=== PATIENT | male | born 1970 | race Caucasian/White ===

== ENCOUNTER → 2020-05-30 09:30 | Outpatient (CLI) | payer OTHER, SELFPAY ==
--- NOTE | ~2020-05-30 | XR_ITS ---
XR chest 2V 05/30/2020 09:46 Indication: Wheezing, dry cough. Nonsmoker Procedure: 2 view chest Comparison: Comparison to multiple prior studies sequentially, with oldest reviewed study dated 02/21. Findings: Heart size normal. No focal air space disease, pulmonary edema, pleural effusion or suspect ed pneumothorax. Calcified granuloma right mid thorax. Impression: 1: No acute cardiopulmonary disease. Reviewed, dictated and finalized at location A. 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
== END ==
PROVIDERS: PCP Family Medicine; Visit Provider Nurse Practitioner Family
DX: R06.2 Wheezing (principal)
CPT/HCPCS: 71046

== ENCOUNTER → 2020-07-23 12:15 | Outpatient (CLI) | payer OTHER, SELFPAY ==
[2020-07-23 23:32] LABS: SARS-CoV-2 RNA PCR Negative
== END ==
PROVIDERS: PCP Family Medicine; Visit Provider Physician Assistant Medical
DX: Z20.822 Contact with and (suspected) exposure to COVID-19 (principal); R68.89 Other general symptoms and signs
CPT/HCPCS: C9803; U0003; U0005

== ENCOUNTER → 2021-04-09 02:33 | Outpatient (CLI) | payer OTHER, SELFPAY ==
[2021-04-09 18:47] LABS: SARS-CoV-2 RNA PCR Negative
== END ==
PROVIDERS: PCP Family Medicine; Visit Provider Physician Assistant Medical
DX: R09.89 Other specified symptoms and signs involving the circulatory and respiratory systems (principal); Z20.822 Contact with and (suspected) exposure to COVID-19
CPT/HCPCS: C9803; U0003; U0005

== ENCOUNTER 2021-10-15 15:06 | Outpatient (CLI) | payer BC, SELFPAY ==
--- NOTE | 2021-10-22 15:27 | WPDHOLTEREM ---
Holter/Event Monitor Holter/Event Monitor Date of procedure: 10/15/21 Holter/Event Procedure: 48 Hr Holter Monitor Indications: Cardiac murmur Conclusion: 1. 48 hour holter monitor on 10/15/21. 2. Predominant rhythm is sinus rhythm. HR range 45-117 bpm; average HR 66 bpm. 3. There are 3,926 premature supraventricular complexes and 8 supraventricular couplets, 30 supraventricular bigeminy and 12 supraventricular trigeminy. There are 4 episodes of atrial tachycardia, fastest at 176 bpm and longest lasting 15 beats. 4. No premature ventricular complex. No ventricular tachycardia. 5. No sinoatrial or atrioventricular blocks. No significant pauses greater than 2 seconds. 6. No symptoms available for correlation.
== END 2021-10-15 15:07 | disposition home or self-care (01) ==
PROVIDERS: PCP Family Medicine; Visit Provider Nurse Practitioner Family
DX: R01.1 Cardiac murmur, unspecified (principal)
CPT/HCPCS: 93225; 93226

== ENCOUNTER 2021-11-06 07:31 | Outpatient (CLI) | payer BC, SELFPAY ==
--- NOTE | 2021-11-06 07:41 | EST_ITS ---
Patient Info Name: Allen Barfield Age: 50 years : 1970 Gender: Male Ht: 71 in Wt: 180 lbs BSA: 2.03 m2 Exam Date: 11/06/2021 8:32 AM Exam Location: [facility] Stress Patient Status: Outpatient Admit Date: 11/06/2021 Staff Ordering Physician: Josee Chopra NP Attending Provider: Josee Chopra NP Exercise Technologist: Sobia Ibrahim RDCS Exercise Physician: Mitch Ramirez DO Exam Type: CA stress test treadmill Study Info Indications R01.1 - Cardiac murmur, unspecified A treadmill exercise stress test was performed. Summary 1. 1. Negative Roni exercise stress test for ischemic ST changes by ECG criteria. Patient achieved only 81% MPHR for age group due to hypertensive response to exercise which reduces sensitivity of the test. 2. 2. Good functional capacity, achieving 9 METs of workload. 3. 3. Baseline hypertension with hypertensive response to exercise. 4. 4. Appropriate HR response to exercise. 5. 5. Appropriate HR recovery at 1 minute post exercise. 6. 6. No imaging with stress testing. 7. 7. Patient informed of the above results. Protocol: Roni Stress ECG Details Stage: REST Duration (min): 13 min : 33 sec Speed (mph): 0.0 Grade (%): 0 HR (bpm): 66 SBP (mmHg): 163 DBP (mmHg): 114 METS: --- Stage: REST Duration (min): 26 min : 12 sec Speed (mph): 0.0 Grade (%): 0 HR (bpm): 92 SBP (mmHg): 163 DBP (mmHg): 114 METS: --- Stage: STAGE 1 Duration (min): 1 min : 0 sec Speed (mph): 1.7 Grade (%): 10 HR (bpm): 88 SBP (mmHg): 163 DBP (mmHg): 114 METS: --- Stage: STAGE 1 Duration (min): 2 min : 0 sec Speed (mph): 1.7 Grade (%): 10 HR (bpm): 103 SBP (mmHg): 163 DBP (mmHg): 114 METS: --- Stage: STAGE 1 Duration (min): 3 min : 0 sec Speed (mph): 1.7 Grade (%): 10 HR (bpm): 116 SBP (mmHg): 220 DBP (mmHg): 95 METS: --- Stage: STAGE 2 Duration (min): 1 min : 0 sec Speed (mph): 2.5 Grade (%): 12 HR (bpm): 115 SBP (mmHg): 220 DBP (mmHg): 95 METS: --- Stage: STAGE 2 Duration (min): 2 min : 0 sec Speed (mph): 2.5 Grade (%): 12 HR (bpm): 123 SBP (mmHg): 210 DBP (mmHg): 101 METS: --- Stage: STAGE 2 Duration (min): 3 min : 0 sec Speed (mph): 2.5 Grade (%): 12 HR (bpm): 125 SBP (mmHg): 210 DBP (mmHg): 101 METS: --- Stage: STAGE 3 Duration (min): 1 min : 0 sec Speed (mph): 3.4 Grade (%): 14 HR (bpm): 132 SBP (mmHg): 230 DBP (mmHg): 102 METS: --- Stage: STAGE 3 Duration (min): 1 min : 21 sec Speed (mph): 3.4 Grade (%): 14 HR (bpm): 137 SBP (mmHg): 230 DBP (mmHg): 102 METS: --- Stage: RECOVERY Duration (min): 0 min : 38 sec Speed (mph): 0.0 Grade (%): 0 HR (bpm): 124 SBP (mmHg): 230 DBP (mmHg): 102 METS: --- Stage: RECOVERY Duration (min): 1 min : 38 sec Speed (mph):
--- NOTE | 2021-11-06 07:41 | ECHO_ITS ---
Patient Info Name: Allen Barfield Age: 50 years : 1970 Gender: Male Ht: 71 in Wt: 180 lbs BSA: 2.03 m2 HR: 59 bpm BP: 163 / 114 mmHg Technical Quality: Good Exam Date: 11/06/2021 8:06 AM Exam Location: [facility] Patient Status: Outpatient Admit Date: 11/06/2021 Staff Ordering Physician: Josee Chopra NP Public Finance Specialist: Sobia Ibrahim RDCS Attending Provider: Josee Chopra NP Referring Physician: Nav MENDEZ; Exam Type: CA echo doppler color flow Study Info Indications R01.1 - Cardiac murmur, unspecified Complete two-dimensional, color flow and Doppler transthoracic echocardiogram is performed. Summary 1. Complete two-dimensional, color flow and Doppler transthoracic echocardiogram is performed. 2. Left ventricular chamber dimension is normal. 3. Left ventricular systolic function is normal, estimated at 60-65%. 4. There is mild concentric increased left ventricular wall thickness. 5. The left ventricular diastolic function is abnormal. 6. E/e' 10 is mildly elevated. 7. Global longitudinal strain is mildly low at -16.8%. 8. There is moderate aortic valve sclerosis. 9. There is mild aortic valve stenosis with a peak velocity of 203 cm/s, mean gradient of 10 mmHg, and aortic valve area of 1.8 cm2. 10. There is mild mitral valve regurgitation. 11. There is mild tricuspid valve regurgitation. 12. No pulmonary hypertension, estimated pulmonary arterial systolic pressure is 35 mmHg. 13. Dilated inferior vena cava with >50% collapse upon inspiration consistent with normal right atrial pressure, 10 mmHg. Left Ventricle E/e' 10 is mildly elevated. Global longitudinal strain is mildly low at -16.8%. Left ventricular chamber dimension is normal. Left ventricular systolic function is normal, estimated at 60-65%. There is mild concentric increased left ventricular wall thickness. The left ventricular diastolic function is abnormal. Right Ventricle Right ventricular chamber dimension is normal. Right ventricular systolic function is normal. Left Atria Left atrial chamber dimension is normal. Right Atria Right atrial chamber dimension is normal. Aortic Valve The aortic valve is trileaflet. There is moderate aortic valve sclerosis. There is mild aortic valve stenosis with a peak velocity of 203 cm/s, mean gradient of 10 mmHg, and aortic valve area of 1.8 cm2. There is no aortic valve regurgitation. Pulmonic Valve There is no pulmonic regurgitation. Mitral Valve There is no mitral valve stenosis. There is mild mitral valve regurgitation. Tricuspid Valve There is mild tricuspid valve regurgitation. No pulmonary hypertension, estimated pulmonary arterial systolic pressure is 35 mmHg. Pericardium/Pleural There is no pericardial effusion. Inferior Vena Cava Dilated inferior vena cava with >50% collapse upon inspiration consistent with normal right atrial pressure, 10 mmHg. Aorta The aortic root size at the sinus of Valsalva is normal. Left Ventricular Outflow Tract Name Value Normal LVOT 2D LVOT Diameter 2.0 cm LVOT Doppler LVOT Peak Gradient
== END 2021-11-06 07:32 | disposition home or self-care (01) ==
PROVIDERS: PCP Family Medicine; Visit Provider Nurse Practitioner Family
DX: R01.1 Cardiac murmur, unspecified (principal); R93.1 Abnormal findings on diagnostic imaging of heart and coronary circulation
CPT/HCPCS: 93017; 93306

== ENCOUNTER 2022-01-02 01:05 | Day surgery (SDC) | payer BC, SELFPAY ==
[2021-11-03 15:27] VITALS: BMI 24.5
[2021-12-23 12:50] VITALS: BMI 24.5
--- NOTE | 2022-01-01 09:01 | WPDANESEPPF ---
Anes - Initial Pre Proc Eval Procedure: Operation Date: 01/02/22 08:00 Proposed Procedures p Screening Colonoscopy - Alvarado Sosa MD Date/Time: 01/01/22 09:01 Surgeon: Alvarado Sosa MD Pre Op Diagnosis: neoplasm screening Patient Data Age: 51 Gender: M Height: 1.8 m Weight: 80 kg Allergies Allergy/AdvReac Type Severity Reaction Status Date / Time No Known Allergies Allergy Verified 01/02/22 06:47 Home Medications Medication Instructions Recorded Confirmed Type tamsulosin 0.4 mg capsule 0.4 mg PO DAILY 05/30/20 01/02/22 History montelukast 10 mg tablet 10 mg PO DAILY #30 tabs 10/02/21 01/02/22 Rx (Singulair) sodium sul 1.479 gram-potas ch See Rx Instructions PO PER PKG DIR 10/07/21 01/02/22 Rx 0.188 gram-magnes sul 0.225 gram #24 tabs tablet (Sutab) omeprazole 20 mg capsule,delayed 20 mg PO DAILY 8 weeks #56 caps 11/26/21 01/02/22 Rx release albuterol sulfate 90 mcg/actuation See Rx Instructions .Route 12/09/21 01/02/22 Rx aerosol inhaler .COMPLEX #8.5 grams lisinopril 10 mg tablet 10 mg PO DAILY 12/23/21 01/02/22 History Patient hx anesthesia problems: none Family hx anesthesia problems: none Results Review: All pre-operative results and documents have been reviewed as part of the pre-operative evaluation. [facility] Past Medical History Medical History (Updated 01/01/22 @ 09:01 by Miguel Ángel Triplett DO) Asthma Essential hypertension Mixed hyperlipidemia Family History Family History Father Hypertension Family history of elevated blood lipids Family history of diabetes mellitus in first degree relative Family history of lung cancer Family history of coronary artery disease Tobacco abuse Mother Heart disease A-fib Sibling Diabetes mellitus Social History Social History Smoking status: Never smoker Second hand tobacco smoke exposure: Yes Alcohol intake: current Drinks per week: 2 Substance use: never Substance use type: does not use Living arrangements: with family 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 Informed Consent: The patient's anesthetic plan and its attendant risks and benefits were discussed with the patient/family/POA. Questions were solicited and answers provided to the satisfaction of the patient/family/POA.
--- NOTE | 2022-01-01 16:51 | PM.HPGS ---
History of Present Illness History of Present Illness Consent: Risks, benefits, and alternatives have been discussed and questions answered. Patient agrees to proceed with procedure. Chief complaint: neoplasm screening Narrative: Allen Barfield is a 51 year old male Referred for colon cancer screening. Review of Systems Review of Systems: All systems reviewed & are unremarkable except as noted in HPI and below PMFSH Past Medical History Medical History Asthma Essential hypertension Mixed hyperlipidemia Family History Family History Father Hypertension Family history of elevated blood lipids Family history of diabetes mellitus in first degree relative Family history of lung cancer Family history of coronary artery disease Tobacco abuse Mother Heart disease A-fib Sibling Diabetes mellitus Social History Social History Smoking status: Never smoker Second hand tobacco smoke exposure: Yes Alcohol intake: current Drinks per week: 2 Substance use: never Substance use type: does not use Living arrangements: with family 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 Gender identity (if verbalized by the patient): Male Meds Home Medications and Allergies Home Medications Medication Instructions Recorded Confirmed Type tamsulosin 0.4 mg capsule 0.4 mg PO DAILY 05/30/20 01/02/22 History montelukast 10 mg tablet 10 mg PO DAILY #30 tabs 10/02/21 01/02/22 Rx (Singulair) sodium sul 1.479 gram-potas ch See Rx Instructions PO PER PKG DIR 10/07/21 01/02/22 Rx 0.188 gram-magnes sul 0.225 gram #24 tabs tablet (Sutab) omeprazole 20 mg capsule,delayed 20 mg PO DAILY 8 weeks #56 caps 11/26/21 01/02/22 Rx release albuterol sulfate 90 mcg/actuation See Rx Instructions .Route 12/09/21 01/02/22 Rx aerosol inhaler .COMPLEX #8.5 grams lisinopril 10 mg tablet 10 mg PO DAILY 12/23/21 01/02/22 History Allergies Allergy/AdvReac Type Severity Reaction Status Date / Time No Known Allergies Allergy Verified 01/02/22 06:47 Exam Const: General: alert Orientation/consciousness: patient oriented x3 Resp: Auscultation: clear to auscultation bilaterally Cardio: Rhythm: regular rhythm GI: GI Palp: Yes Soft to palpation and No Tenderness to palpation present (GI) Neuro: General: patient oriented x3 Assessment and Plan Assessment and plan (1) Screening for malignant neoplasm of colon: Code(s): Z12.11 - Encounter for screening for malignant neoplasm of colon Status: Acute Assessment and Plan: Colonoscopy with possible biopsy or polypectomy or cautery or injection of substances.
[2022-01-02 06:49] VITALS: BP 169/100; PULSE 65; RESP 18; TEMP 35.9; O2SAT 100
[2022-01-02] MEDS: LACTATED RINGERS 1,000 ML 150 ML IV CONT (06:51)
[2022-01-02 08:17] VITALS: BP 139/84; PULSE 64; RESP 15; O2SAT 98
[2022-01-02 08:27] VITALS: BP 149/91; PULSE 63; RESP 17; O2SAT 99
[2022-01-02 08:37] VITALS: BP 156/100; PULSE 59; RESP 20; O2SAT 99
== END 2022-01-02 08:55 | disposition home or self-care (01) ==
PROVIDERS: PCP Family Medicine; Visit Provider Internal Medicine Gastroenterology
PROC: 0DJD8ZZ Inspection of Lower Intestinal Tract, Via Natural or Artificial Opening Endoscopic (ICD-10-PCS; CPT 45378; principal; 2022-01-02 07:30)
DX: Z12.11 Encounter for screening for malignant neoplasm of colon (principal); D12.3 Benign neoplasm of transverse colon; G43.909 Migraine, unspecified, not intractable, without status migrainosus; I10 Essential (primary) hypertension; E78.2 Mixed hyperlipidemia; Z79.51 Long term (current) use of inhaled steroids
CPT/HCPCS: 45385; 88305; J2704; J7120

== ENCOUNTER 2022-04-20 18:11 | Emergency (ER) | payer BC, SELFPAY ==
[2022-04-20 18:49] VITALS: BP 110/68; PULSE 82; RESP 18; TEMP 36.3; O2SAT 100
[2022-04-20 18:50] VITALS: BP 110/68; PULSE 82; RESP 18; TEMP 36.3; O2SAT 100
--- NOTE | 2022-04-20 19:02 | ED.MALEGU ---
HPI - Male Genitourinary General Chief complaint: Urogenital-Male Stated complaint: uti complaint Time Seen by Provider: 04/20/22 18:55 Source: patient Mode of arrival: ambulatory Limitations: no limitations History of Present Illness HPI Narrative: Mr. Fisher is a 51-year-old male patient presenting to clinic today with complaints of possible urinary tract infection versus prostatitis. He reports that yesterday he was having difficulty urinating and was having urinary retention so he self cathed himself couple times yesterday to make sure that he was empty. He is now having burning with urination as well as some bladder pain. He contacted his urologist and they suggested he come to the urgent care because they cannot get him in for 1 month. Related Data Home Medications Medication Instructions Recorded Confirmed tamsulosin 0.4 mg capsule 0.4 mg PO DAILY 05/30/20 04/20/22 lisinopril 40 mg tablet 40 mg PO DAILY 04/20/22 04/20/22 omeprazole 20 mg capsule,delayed 20 mg PO DAILY 04/20/22 04/20/22 release Allergies Allergy/AdvReac Type Severity Reaction Status Date / Time No Known Allergies Allergy Verified 04/20/22 18:48 Review of Systems Review of Systems: Pertinent positives per HPI. Patient denies any fever, chills, rash, headache, visual changes, dizziness, cough, runny nose, sore throat, shortness of breath, chest pain, palpitations, nausea, vomiting, diarrhea, constipation, abdominal pain. 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 There is no relevant family history pertinent to the patient complaint. Exam Narrative: General: Well-developed, well nourished, in no apparent distress. Head: Normocephalic, atraumatic. Cardio: Regular rate and rhythm, s1 and s2 normal, no murmur appreciated. Resp: Clear to auscultation bilaterally, no rhonchi, rales, wheezing or rubs. Abdomen: Soft, pliable, bowel sounds present in all quadrants, Mild tender to palpation over the suprapubic bladder, no organomegly, no CVAT tenderness. Course Course Emergency Course: Portions of this record may have been created with voice recognition software. Level of Care: Express Care Visit Vital Signs Vital signs: Vital Signs Temperature 36.3 C L 04/20/22 18:49 Pulse Rate 82 04/20/22 18:49 Respiratory Rate 18 04/20/22 18:49 Blood Pressure 110/68 04/20/22 18:49 Pulse Oximetry 100 04/20/22 18:49 Oxygen Delivery Room Air 04/20/22 18:49 Temperature 36.3 C L 04/20/22 18:50 Pulse Rate 82 04/20/22 18:50 Respiratory Rate 18 04/20/22 18:50 Blood Pressure 110/68 04/20/22 18:50 Pulse Oximetry 100 04/20/22 18:50 Oxygen Delivery Room Air 04/20/22 18:50 Vital signs reviewed MDM - Male Genitourinary MDM Narrative Medical decision making narrative: at the time of the patient is resting comfortably on the exam table. Urinalysis was completed and shows protein, blood, and bili in his urine. I will g
== END 2022-04-20 19:10 | disposition home or self-care (01) ==
PROVIDERS: Emergency Provider Nurse Practitioner Family; PCP Family Medicine
DX: R30.0 Dysuria (principal); R33.9 Retention of urine, unspecified; R80.9 Proteinuria, unspecified; E78.2 Mixed hyperlipidemia; I10 Essential (primary) hypertension
CPT/HCPCS: 81003; 87086; 99213; G0463

== ENCOUNTER 2023-03-06 11:28 | Emergency (ER) | payer BC, SELFPAY ==
--- NOTE | 2023-03-06 11:57 | ED.URI ---
HPI - URI/Sore Throat General Chief Complaint: Upper Respiratory Infection Stated Complaint: congestion,headache Time Seen by Provider: 03/06/23 11:45 Source: patient Mode of arrival: ambulatory Limitations: no limitations History of Present Illness HPI Narrative: patient is a 52-year-old male who presents with congestion and sinus pressure since night. Patient has taken 2 doses of cefuroxime that he had at home with no relief of symptoms. Patient is also taken ibuprofen. Denies any allergy medicine or decongestant medicine. Denies any cough, fever, chills, nausea, vomiting, diarrhea or sore throat. Related Data Home Medications Medication Instructions Recorded Confirmed tamsulosin 0.4 mg capsule 0.4 mg PO DAILY 05/30/20 03/06/23 Allergies Allergy/AdvReac Type Severity Reaction Status Date / Time No Known Allergies Allergy Verified 03/06/23 12:14 Review of Systems Review of Systems: All systems reviewed & are unremarkable except as noted in HPI and below Constitutional: Constitutional: Denies body ache(s), Denies chills, Denies fatigue, Denies fever(s), Denies headache(s), Denies malaise and Denies weakness Eyes: Eyes: Denies blurry vision, Denies itchy eyes and Denies loss of vision ENT: Denies otalgia, Denies headache(s), Reports nasal congestion, Denies sinus pain, Reports sinus pressure and Denies sore throat Cardiovascular: Cardiovascular: Denies chest pain, Denies irregular heart rhythm and Denies dyspnea Respiratory: Respiratory: Denies cough and Denies dyspnea Gastrointestinal: Gastrointestinal: Denies abdominal pain, Denies diarrhea, Denies nausea and Denies vomiting Musculoskeletal: Musculoskeletal: Denies back pain, Denies myalgias and Denies arthralgias Integumentary/Breasts: Skin/Breast: Denies pruritus and Denies rash Neurologic: Denies headache(s), Denies loss of vision and Denies weakness Psychiatric: Psychiatric: Reports no additional psychiatric complaints Endocrine: Endocrine: Denies fatigue Allergic/Immunologic: Allergic/Immunologic: Denies itchy eyes PMFSH Past Medical History Medical History Asthma Essential hypertension Mixed hyperlipidemia Surgical History Surgical History H/O colonoscopy Family History Family History Father Hypertension Family history of elevated blood lipids Family history of diabetes mellitus in first degree relative Family history of lung cancer Family history of coronary artery disease Tobacco abuse Mother Heart disease A-fib Sibling Diabetes mellitus Social History Social History Smoking status: Never smoker Second hand tobacco smoke exposure: Yes Alcohol intake: current Drinks per week: 2 Substance use: never Substance use type: does not use Lack of Transportation: No Lack of Food: Never True Current Housing: I Have Housing Concerned About Future Housing: No Difficulty Paying Gas/Electric Bills: No Difficulty Paying for Meds: No Currently Unemployed: No Education: Bachelor's Degree Difficulty w/ Childcare or Family Care: No Living arrangements: with family 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 There is no relevant family history pertinent to the presenting complaint. Exam Const: General: cooperative, healthy appearing, comfortable, no acute distress and well nourished Nutritional Appearance: well nourished Orientation/consciousness: patient oriented x3 Limitations: no limitations HENMT: Head: normal to inspection, normocephalic and atraumat
[2023-03-06 12:00] VITALS: BP 128/85; PULSE 84; RESP 18; TEMP 37; O2SAT 98
== END 2023-03-06 12:38 | disposition home or self-care (01) ==
PROVIDERS: Emergency Provider Nurse Practitioner Family; PCP Family Medicine
DX: U07.1 COVID-19 (principal); J45.909 Unspecified asthma, uncomplicated; I10 Essential (primary) hypertension; E78.2 Mixed hyperlipidemia
CPT/HCPCS: 87426; 99213; C9803; G0463

== ENCOUNTER 2024-05-20 15:59 | Emergency (ER) | payer BC, SELFPAY ==
[2024-05-20 16:13] VITALS: BP 130/76; PULSE 72; RESP 18; TEMP 36.6; O2SAT 98
--- NOTE | 2024-05-20 16:24 | ED_ITS ---
HPI - URI/Sore Throat General Chief Complaint: Upper Respiratory Infection Stated Complaint: Flu like symptoms Time Seen by Provider: 05/20/24 16:25 Source: patient, RN notes reviewed and old records reviewed Mode of arrival: ambulatory Limitations: no limitations History of Present Illness HPI Narrative: 53-year-old male presents to the [facility] with a runny nose that started on , 2 days ago. Cough and body aches started last night. Did take allergy medication, vitamins and ibuprofen Related Data Home Medications ?Medication ?Instructions ?Recorded ?Confirmed ?Last Taken ?Type tamsulosin 0.4 mg capsule 0.4 mg PO DAILY 05/30/20 08/17/23 01/01/22 History rosuvastatin 20 mg tablet 20 mg PO DAILY 08/17/23 08/17/23 Unknown History Allergies Allergy/AdvReac Type Severity Reaction Status Date / Time No Known Allergies Allergy Verified 05/20/24 16:23 Review of Systems Review of Systems: All systems reviewed & are unremarkable except as noted in HPI and below Constitutional: Constitutional: Reports no additional constitutional complaints ENT: Reports as per HPI Cardiovascular: Cardiovascular: Reports no additional cardiovascular complaints, Denies chest pain and Denies dyspnea Respiratory: Respiratory: Reports as per HPI, Denies chest congestion, Reports cough and Denies dyspnea Musculoskeletal: Musculoskeletal: Reports no additional musculoskeletal complaints Integumentary/Breasts: Skin/Breast: Reports system reviewed and no additional complaints, except as docu PMFSH Past Medical History Medical History History of skin cancer Skin cancer Asthma Essential hypertension Mixed hyperlipidemia Surgical History Surgical History H/O colonoscopy Family History Family History Father Hypertension Family history of elevated blood lipids Family history of diabetes mellitus in first degree relative Family history of lung cancer Family history of coronary artery disease Tobacco abuse Mother Heart disease A-fib Sibling Diabetes mellitus Social History Social History Smoking status: Never smoker Second hand tobacco smoke exposure: Yes Alcohol intake: current Drinks per week: 2 Substance use: never Substance use type: does not use Lack of Transportation: No Lack of Food: Never True Current Housing: I Have Housing Concerned About Future Housing: No Difficulty Paying Gas/Electric Bills: No Difficulty Paying for Meds: No Currently Unemployed: No Education: Bachelor's Degree Difficulty w/ Childcare or Family Care: No Living arrangements: with family 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 There is no relevant family history pertinent to the patient complaint. Exam Const: General: cooperative, healthy appearing, comfortable, no acute distress, well developed, alert and well nourished Nutritional Appearance: well nourished Orientation/consciousness: patient oriented x3 Limitations: no limitations HENMT: Head: normal to inspection Ears: hearing grossly normal bilaterally, external ears normal, TM's normal bilaterally, EAC's normal, mastoids normal and no periauricular adenopathy Mouth: Yes Normal oral and palatal mucosa present, Yes lip normal, Yes tongue normal and Yes moist mucous membranes Throat: posterior oropharynx normal, uvula midline, postnasal drainage and no uvular edema Eyes: General: appearance normal, both eyes and all related structures Alignment and Position: alignment normal Neck: Neck: normal visual inspection, full ROM, no lymphadenopathy and no meningeal signs Chest: Chest palpation & inspection: normal inspection of the chest Resp: Effort & Inspection: normal respiratory effort and able to speak in complete sentences Auscultation: clear to auscultation bilaterally, no crackles, no rales, no rhonchi and no wheezes Cardio: Rate: regular rate Skin: General skin exam: normal color and no rashes or lesions noted Neuro: General: patient oriented x3, gait normal, moves all extremities and no meningeal signs Cognition (Neuro): normal cognition Speech: normal speech Gait exam (Neuro): Normal gait present Extrem: General: normal to inspection, full ROM, capillary refill normal and normal gait Psych: Appearance: grossly normal and well kempt Mental Status: mental status grossly normal Speech and movement: Normal speech and movement present and Clear speech present Affect: normal affect Attitude: cooperative Course Course Level of Care: Express Care Visit Vital Signs Vital signs: Vital Signs Temperature 97.9 F 05/20/24 16:13 Pulse Rate 72 05/20/24 16:13 Respiratory Rate 18 05/20/24 16:13 Blood Pressure 130/76 05/20/24 16:13 Pulse Oximetry 98 05/20/24 16:13 Oxygen Delivery Room Air 05/20/24 16:13 Temperature 97.9 F 05/20/24 16:13 Pulse Rate 72 05/20/24 16:13 Respiratory Rate 18 05/20/24 16:13 Blood Pressure 130/76 05/20/24 16:13 Pulse Oximetry 98 05/20/24 16:13 Oxygen Delivery Room Air 05/20/24 16:13 Reviewed MDM - URI/Sore Throat MDM Narrative Medical decision making narrative: Patient sitting in exam room. Nontoxic, vitals stable. Patient presents for 2 day history of URI symptoms. Flu and COVID are negative. No acute findings noted exam except for postnasal drainage. Patient appropriate for outpatient treatment and follow-up Discharge instructions reviewed with patient, as well as provided in writing per nursing staff. The instructions also include specific and strict return/GO TO THE ER as well as f/u information. All questions have been answered, and the patient deny any further questions with discharge and discharge plan. Some parts of this dictation were generated by voice recognition software and may contain typographical and/or grammatical inaccuracies. Differential Diagnosis Differential diagnosis: Likely upper respiratory infection, sinusitis, viral infection, bronchitis, influenza and pharyngitis Lab Data Labs: Lab Results 05/20/24 Range/Units 16:37 POC Influenza A Ag Negative (Negative) POC Influenza B Ag Negative (Negative) POC SARS CoV-2 Ag Negative (Negative) Reviewed Critical Care Time Critical Care Time Critical Care Time: No Discharge Plan Discharge Clinical Impression: Upper respiratory infection, Viral infection, Post-nasal drainage Patient Disposition: Home, Self-Care Condition: Stable Instructions: Antibiotic Form, Upper Respiratory Infection (DC), Postnasal Drip (DC) Additional Instructions: Your rapid COVID test were negative Your rapid flu test was negative Your symptoms are likely due to a viral illness, which is not treated with antibiotics. Typically viral infections last 7-10 days, can linger for couple of weeks. It is very important to treat your symptoms. Drink plenty of water, Gatorade, Pedialyte, ice pops or Jell-O. -Alternate Tylenol and Motrin per package directions for fever or pain. You can alternate every 4 hours -Antihistamine medication such as Benadryl at night and Zyrtec/Claritin/Tatiana during the day can help improve symptoms. -doing daily nasal irrigations can help relieve pressure your sinuses. Things like a Neti pot -Use Flonase twice a day for 5 days then daily to help reduce the inflammation and dry up your sinuses. -You can also use Mucinex. Be sure to drink plenty of water with this medication at least 8 ounces with every dose and it is important to drink 8 to 10 glasses of water per day. Water is a natural decongestant -Eat and drink things that are easy to swallow, like tea or soup, or popsicles. -Oral rinses such as: Salt water gargles and/or may use topical anesthetic (eg. Chloraseptic spray) or lozenges to relieve dryness or throat pain). -Frequent hand washing or hand director product is one of the best ways to prevent spread of infection. -Using a vaporizer or humidifier at night will also help thin secretions and help with coughing up phlegm. -Follow up with primary care provider in 7-10 days if condition is not improving - For new or worsening symptoms go directly to the nearest ER Patient Language: Cambodian Prescriptions: No Action tamsulosin 0.4 mg capsule 0.4 mg PO DAILY Patient Comments: pt states he takes this bid rosuvastatin 20 mg tablet 20 mg PO DAILY omeprazole 20 mg capsule,delayed release(DR/EC) 40 mg PO DAILY Qty: 180 1RF lisinopril 40 mg tablet 40 mg PO DAILY Qty: 90 0RF montelukast 10 mg tablet See Rx Instructions .ROUTE .COMPLEX Qty: 30 5RF Dose Instruction: TAKE 1 TABLET BY MOUTH DAILY Rx Instructions: TAKE 1 TABLET BY MOUTH DAILY Zoryve 0.3 % cream 1 applic topical DAILY Qty: 60 0RF amlodipine 5 mg tablet See Rx Instructions .ROUTE .COMPLEX Qty: 90 1RF Dose Instruction: TAKE 1 TABLET BY MOUTH DAILY Rx Instructions: TAKE 1 TABLET BY MOUTH DAILY albuterol sulfate 90 mcg/actuation HFA aerosol inhaler See Rx Instructions .ROUTE .COMPLEX Qty: 8.5 2RF Dose Instruction: INHALE 1 PUFF BY MOUTH EVERY 4 HOURS NEEDED FOR SHORTNESS OF BREATH OR WHEEZING Rx Instructions: INHALE 1 PUFF BY MOUTH EVERY 4 HOURS NEEDED FOR SHORTNESS OF BREATH OR WHEEZING Follow-up/Referrals: Haja Lynn MD [Primary Care Provider] - 2 Weeks ([facility] follow-up) Stand Alone Forms: Work/School Release IP Time of Disposition: 16:34
[2024-05-20 16:39] LABS: EDCOVIDSCREEN Negative (Negative); EDINFLUASCREEN Negative (Negative); EDINFLUBSCREEN Negative (Negative)
== END 2024-05-20 16:38 | disposition home or self-care (01) ==
PROVIDERS: Emergency Provider Nurse Practitioner; PCP Family Medicine
DX: J06.9 Acute upper respiratory infection, unspecified (principal); B34.9 Viral infection, unspecified; R09.82 Postnasal drip; Z20.822 Contact with and (suspected) exposure to COVID-19; I10 Essential (primary) hypertension; E78.2 Mixed hyperlipidemia; J45.909 Unspecified asthma, uncomplicated; Z85.828 Personal history of other malignant neoplasm of skin
CPT/HCPCS: 87426; 87804; 99212; G0463

== ENCOUNTER 2025-02-18 18:24 | Inpatient (IN) | payer BC, SELFPAY ==
[2025-02-18] VITALS (11 sets, daily range): BP systolic 107–147; BP diastolic 59–81; PULSE 60–65; RESP 13–18; TEMP 36.4–36.8; O2SAT 96–100; BMI 24.6
--- NOTE | ~2025-02-18 | XR_ITS ---
EXAMINATION: XR surgery orthopedic DATE: 02/20/2025 15:19 INDICATION: ORIF right hip fracture TECHNIQUE: 3 fluoroscopic images of the right hip were obtained during procedure performed by Dr. Juares. Radiologist was not present for the imaging or procedure. The amount of fluoroscopy time used during this procedure was 0.9 minutes. Total DAP was 2.406 Gycm^2. COMPARISON: None. FINDINGS: Interval reduction of the previously mildly angulated intertrochanteric fracture the proximal right femur which is now in near- anatomic alignment. The fracture is fixed with a lateral plate and screw fixation which includes an associated femoral neck dynamic compression screw. No new fractures identified. Mild osteoarthritis at the right hip. IMPRESSION: 1. Near-anatomic alignment post open reduction internal fixation of an intertrochanteric fracture the proximal right femur. Reviewed, dictated and finalized at location A. IMPRESSION: 1. Near-anatomic alignment post open reduction internal fixation of an intertro chanteric fracture the proximal right femur.
--- NOTE | ~2025-02-18 | XR_ITS ---
Examination: XR hip RT 2V w AP pelvis Clinical History: injury Comparison: None Technique: 2 views right hip with AP pelvis Findings/impression: 1. Intertrochanteric fracture right femur. 2. No pelvic fracture. Reviewed, dictated and finalized at location R.
--- NOTE | ~2025-02-18 | XR_ITS ---
EXAMINATION: XR chest 1V portable COMPARISON: No comparisons available. HISTORY: leukocytosis FINDINGS: The lungs are clear, no effusion. No pneumothorax. Heart is normal size. Mediastinal and hilar contours are within normal limits. Bony thorax no acute abnormality. Miscellaneous: None Impression: No acute cardiopulmonary abnormality. Reviewed, dictated and finalized at location P. Impression: No acute cardiopulmonary abnormality.
--- NOTE | 2025-02-18 19:15 | PC.NURSE ---
Received report from LIGIA Abbott for cont. of care. Pt AOx4 lying on stretcher c/o 01/31 burning R hip pain radiating down leg. Per pt fell of the back of a truck (moving van) and landed on R hip. Per pt has been having problems with hip for a few months, denies LOC and no thinners.
[2025-02-18] MEDS: HYDROcodone/acetaminophen (*CRX) 5-325 MG TABLET 1 TAB PO ×2 (19:27→22:52)
--- OUTSIDE RECORDS SUMMARY | 2025-02-18 19:27 | XMS_ITS | Clinical Summary ---
Author Organization [facility] [employer] Address [address] [place] [address] Care Team Providers Care Normalizer Name Role Phone Haja Lynn MD Primary Care Provider [phone] Source Comments [facility] [employer],non-owned Affiliates and Associated Physician Practices is amultiple site organization consisting of ambulatory clinics and hospital sitesin [place], [place], [place] and [place]. This disclosure is being madepursuant to the Care Everywhere program and may not contain all information available regarding this patient. Last updated 18.[employer] Allergies No known active allergies Medications * Be aware that medications may not be up to date on this document. Alwaysverify current medications with the patient. amLODIPine (Norvasc) 5 MG tablet Take 1 (one) tablet by mouth once daily 03/31/2023 Active lisinopril (Prinivil; Zestril) 40 MG tablet 1 (one) tablet once daily 03/13/2023 Active montelukast (Singulair) 10 MG tablet Take 1 (one) tablet by mouth once daily 03/24/2023 Active tamsulosin (Flomax) 0.4 MG capsule Take 1 (one) capsule by mouth 2 times daily 02/19/2023 Active sildenafil (Revatio) 20 MG tablet Take 1 (one) tablet by mouth once daily 05/31/2022 Active Active Problems Problem Noted Date Diagnosed Date Personal history of other malignant neoplasm of skin 08/14/2011 Social History Tobacco Use Types Packs/Day Years Used Date Smoking Tobacco: Never Smokeless Tobacco: Never Alcohol Use Standard Drinks/Week Comments Yes 0 (1 standard drink = 0.6 oz pur e alcohol) Sex and Gender Information Value Date Recorded Sex Assigned at Not on file 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 Gender Identity Not on file Sexual Orientation Not on file Last Filed Vital Signs Vital Sign Reading Time Taken Comments Blood Pressure - - Pulse - - Temperature - - Respiratory Rate - - Oxygen Saturation - - Inhaled Oxygen Concentration - - Weight 79.4 kg (175 lb) 04/21/2023 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 Height 180.3 cm (5' 11) 04/21/2023 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 Body Mass Index 24.41 04/21/2023 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 Plan of Treatment Health Maintenance Due Date Last Done Comments COLOGUARD (AGES 45-75) - COL ON CA SCREENING 1968 COLON MONITORING 1968 COLONOSCOPY - COLON CA SCREENING 1968 CT COLONOGRAPHY - COLON CA SCREENING 1968 Colorectal Cancer Screening 1968 FIT - COLON CA SCREENING 1968 FLEX SIG - COLON CA SCREENING 1968 LIPID TESTING 1968 HIV SCREENING 11/26/1983 HEPATITIS C SCREENING 11/21/1986 DTAP/TDAP/TD VACCINES (1 - Tdap) 11/26/1987 HEPATITIS B VACCINE (1 of 3 - 19+ 3-dose series) 11/26/1987 PNEUMOCOCCAL VACCINE 50+ (1 of 1 - PCV) 2018 ZOSTER VACCINE (1 of 2) 2018 DEPRESSION SCREENING 05/24/2024 COVID-19 VACCINE (1 - 2023-2 5 season) 2025 INFLUENZA VACCINE (#1) 2025 HIB VACCINE Aged Out No longer eligi ble based on patient's age to complete this topic HPV VACCINE Aged Out No longer eligi ble based on patient's age to complete this topic MENINGOCOCCAL (Group B) VACC INE SHARED DECISION-MAKING Aged Out No longer eligibl e based on patient's age to complete this topic MENINGOCOCCAL GROUPS A/C/Y/W VACCINE Aged Out No longer eligible b ased on patient's age to complete this topic Insurance [facility] Care Teams Normalizer Relationship Specialty Start Date End Date Haja Lynn MD [address] [place] [id number] PCP - General 06/19/11
--- NOTE | 2025-02-18 20:35 | ECG_ITS ---
Test Date: 2025-02-18 21:16:38 Measurements Intervals [place] Rate: 64 P: 53 GA: 149 QRS: 20 QRSD: 90 T: 53 QT: 399 QTc: 413 Interpretive Statements SINUS RHYTHM No previous ECG available for comparison Electronically Signed On 02-19-2025 06:20:12 CDT by Alfredito Norton M.D.
--- NOTE | 2025-02-18 20:52 | ED.FALL ---
HPI - Fall General Chief Complaint: Fall Stated Complaint: Right Hip Injury Time Seen by Provider: 02/18/25 19:03 History of Present Illness HPI Narrative: Patient is a 54-year-old male who presents to the emergency department this evening status post fall. Patient states that he fell off the back of a truck and landed on his right hip. Denies hitting his head and denies any loss of consciousness. Denies any blood thinner use. Patient states that he has had some chronic pain to his right hip but since the fall he has not been able to ambulate or put any weight on his right hip. Denies any additional injuries or concerns. Related Data Home Medications ?Medication ?Instructions ?Recorded ?Confirmed ?Last Taken ?Type tamsulosin 0.4 mg capsule 0.4 mg PO DAILY 05/30/20 12/19/24 01/01/22 History rosuvastatin 20 mg tablet 20 mg PO DAILY 08/17/23 12/19/24 Unknown History Allergies Allergy/AdvReac Type Severity Reaction Status Date / Time No Known Allergies Allergy Verified 02/18/25 18:31 Review of Systems Review of Systems: All systems are reviewed and are negative unless stated otherwise in the HPI. [facility] Past Medical History Medical History History of skin cancer Skin cancer Asthma Essential hypertension Mixed hyperlipidemia Surgical History Surgical History H/O colonoscopy Family History Family History Father Hypertension Family history of elevated blood lipids Family history of diabetes mellitus in first degree relative Family history of lung cancer Family history of coronary artery disease Tobacco abuse Mother Heart disease A-fib Sibling Diabetes mellitus Social History Social History Smoking status: Never smoker Second hand tobacco smoke exposure: Yes Alcohol intake: current Drinks per week: 2 Substance use: never Substance use type: does not use Do You Feel Safe in your Home?: Yes Lack of Transportation: No Lack of Food: Never True Current Housing: I Have Housing Concerned About Future Housing: No Difficulty Paying Gas/Electric Bills: No Difficulty Paying for Meds: No Currently Unemployed: No Education: Bachelor's Degree Difficulty w/ Childcare or Family Care: No Living arrangements: with family 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 HEENT: PERRL, no rhinorrhea, no post nasal drip, oropharynx clear. Neck: Trachea midline, no JVD, no lymphadenopathy. Cardiovascular: Regular rate and rhythm, no murmurs, rubs or gallops, no peripheral edema. Respiratory: Clear to auscultation bilaterally, no tachypnea, no wheezing, no rhonchi, no rubs, no respiratory distress. Abdomen: Soft, nontender, nondistended, no rebound, no guarding, no peritoneal signs. Musculoskeletal: Decreased range of motion at the right lower extremity at the hip joint secondary to pain otherwise moving all other extremities spontaneously. Skin: No rashes or petechia, no signs of infection. Psychiatric: Alert and oriented, normal behavior and judgment for situation. Neurological: Alert and oriented to person, place, and time. Follows all commands. No focal deficits, speech is clear and fluent. Course Vital Signs Vital signs: Vital Signs Temperature 97.6 F 02/18/25 18:31 Pulse Rate 65 02/18/25 18:31 Respiratory Rate 18 02/18/25 18:31 Blood Pressure 147/59 H 02/18/25 18:31 Pulse Oximetry 97 02/18/25 18:31 Oxygen Delivery Room Air 02/18/25 18:31 Temperature 98.2 F 02/18/25 19:08 Pulse Rate 60 02/18/25 19:09 Respiratory Rate 15 02/18/25 21:15 Blood Pressure 128/74 02/18/25 21:15 Pulse Oximetry 99 02/18/25 21:15 Oxygen Delivery Room Air 02/18/25 18:31 MDM - Fall MDM Narrative Medical decision making narrative: The patient was evaluated by myself in the emergency department. History is obtained from patient who is an independent historian and physical exam was performed. External medical records were reviewed at this time. IV was established and pertinent tests were ordered. Patient was administered an oral [place] 5-325mg with improvement of his pain. EKG was obtained which revealed sinus rhythm rate of 64 beats per minute otherwise no evidence of acute ischemia. EKG was independently interpreted by me and is currently pending official cardiology read. Laboratory results obtained revealing no acute process. Imaging studies obtained included AP pelvis with right hip x-ray which was independently interpreted by me revealing a right IT hip fracture, which is pending final radiology interpretation. Differential diagnosis considerations include hip fracture, dislocation, muscle skeletal injury. Comorbidities impacting this visit include none. I have evaluated and discussed social determinants of health with the patient that could potentially impact subsequent diagnosis and treatment plans. On repeat assessment of the patient, reevaluation revealed that the patient is doing well and is in no acute distress. Patient symptoms have improved since he arrived to our emergency department. Patient states that his pain is returning and at this time was administered 4 mg of IV morphine 4 mg IV Zofran. Repeat vital signs were all reviewed and noted to be stable. Differential diagnosis and treatment plan were discussed with the patient at bedside. Patient agrees with discussion and after shared medical decision making agrees with admission. All questions were answered to the patient's satisfaction. Case was discussed with the on-call orthopedic surgeon Dr. Landeros at 2039 who accepted consultation and wanted patient admitted to medicine. Case discussed with the on-call [employer] SUPERVISOR Danni at 2216 accepted admission. Lab Data 02/18/25 21:25 02/18/25 21:25 Labs: Lab Results 02/18/25 Range/Units 21:25 WBC 13.1 H (4.5-10.0) K/mm3 RBC 4.69 (4.6-6.20) M/mm3 Hgb 14.1 (14.0-18.0) g/dL Hct 42.6 (42.0-52.0) % MCV 90.8 (80-100) fl MCH 30.1 (26-34) pg MCHC 33.1 (32-36) g/dl RDW 12.9 (11.5-14.5) % Plt Count 203 (150-375) k/mm3 MPV 10.7 H (7.4-10.4) fl Immature Gran % (Auto) 0.5 (0-0.5) % Neut % (Auto) 87.2 H (45.5-73.1) % Lymph % (Auto) 6.6 L (18.3-44.2) % Bladen % (Auto) 5.4 (2.6-8.5) % Eos % (Auto) 0.0 (0-4.4) % Baso % (Auto) 0.3 (0.2-1.2) % Lymph # (Auto) 0.86 L (0.9-3.2) K/mm3 Bladen # (Auto) 0.7 H (0.1-0.6) K/mm3 Eos # (Auto) 0.0 (0-0.3) K/mm3 Baso # (Auto) 0.0 (0.0-0.1) K/mm3 Abs Immat Gran (auto) 0.06 H (0.00-0.031) K/mm3 Absolute Neuts (auto) 11.4 H (1.3-6.7) K/mm3 Absolute Nucleated RBC 0.000 (0.0-0.012) K/mm3 Nucleated RBC % 0.0 (0.0-0.2) % Sodium 140 (137-145) mmol/L Potassium 4.1 (3.4-5.0) mmol/L Chloride 105 (98-107) mmol/L Carbon Dioxide 25 (22-30) mmol/L Anion Gap 10 (4-12) mmol/L BUN 19 (9-20) mg/dL Creatinine 0.96 (0.7-1.3) mg/dL Estim Creat Clear Calc 81 ml/min Estimated GFR > 60 (59 - ) Glucose 101 (65-110) mg/dL Calcium 9.1 (8.4-10.2) mg/dL Magnesium 2.0 (1.6-2.3) mg/dL Total Bilirubin 1.5 H (0.2-1.3) mg/dL AST 35 (17-59) U/L ALT 26 (6-50) U/L Alkaline Phosphatase 98 (38-126) U/L Total Protein 7.5 (6.3-8.2) g/dL Albumin 4.7 (3.5-5.1) g/dL Discharge Plan Discharge Clinical Impression: Closed intertrochanteric fracture of right femur Patient Disposition: Still a Patient Condition: Improved Patient Language: Occitan Prescriptions: No Action tamsulosin 0.4 mg capsule 0.4 mg PO DAILY Patient Comments: pt states he takes this bid doxycycline hyclate 100 mg tablet 100 mg PO DAILY Qty: 14 0RF rosuvastatin 20 mg tablet 20 mg PO DAILY Airsupra 90-80 mcg/actuation HFA aerosol inhaler 2 inh inhalation 6XD PRN (Reason: shortness of breath) Qty: 32.1 3RF Trelegy Ellipta 100-62.5-25 mcg blister with device 1 inh inhalation DAILY Qty: 60 9RF lisinopril 40 mg tablet 40 mg PO DAILY Qty: 90 0RF Zoryve 0.3 % cream 1 applic topical DAILY Qty: 60 0RF albuterol sulfate 90 mcg/actuation HFA aerosol inhaler See Rx Instructions .ROUTE .COMPLEX Qty: 8.5 0RF Dose Instruction: INHALE 1 PUFF BY MOUTH EVERY 4 HOURS NEEDED FOR SHORTNESS OF BREATH OR WHEEZING Rx Instructions: INHALE 1 PUFF BY MOUTH EVERY 4 HOURS NEEDED FOR SHORTNESS OF BREATH OR WHEEZING benzonatate 100 mg capsule 100 mg PO TID PRN (Reason: cough) Qty: 30 0RF amlodipine 5 mg tablet See Rx Instructions .ROUTE .COMPLEX Qty: 30 1RF Dose Instruction: TAKE 1 TABLET BY MOUTH DAILY Rx Instructions: TAKE 1 TABLET BY MOUTH DAILY montelukast 10 mg tablet See Rx Instructions .ROUTE .COMPLEX Qty: 90 0RF Dose Instruction: TAKE 1 TABLET BY MOUTH DAILY Rx Instructions: TAKE 1 TABLET BY MOUTH DAILY cholecalciferol (vitamin D3) 1,250 mcg (50,000 unit) capsule 1,250 mcg PO WEEKLY Qty: 8 0RF escitalopram oxalate [Lexapro] 10 mg tablet 10 mg PO DAILY Qty: 90 0RF Follow-up/Referrals: Haja Lynn MD [Primary Care Provider, Family Practice] Time of Disposition: 21:02
[2025-02-18 21:29] LABS: Hematocrit 42.6 % (42.0-52.0); Hemoglobin 14.1 g/dL (14.0-18.0); Immature Granulocyte Percent A 0.5 % (0-0.5); Lymphocytes Absolute Auto 0.86 K/mm3 (0.9-3.2); Mean Corpuscular HGB Conc 33.1 g/dl (32-36); Mean Corpuscular Hemoglobin 30.1 pg (26-34); Mean Corpuscular Volume 90.8 fl (80-100); Nucleated Red Blood Cells Absolute Auto 0.000 K/mm3 (0.0-0.012); Nucleated Red Blood Cells Perc 0.0 % (0.0-0.2); Platelet Count Result 203 k/mm3 (150-375); Red Blood Count 4.69 M/mm3 (4.6-6.20); White Blood Count 13.1 K/mm3 (4.5-10.0)
[2025-02-18 21:40] LABS: Alanine Aminotransferase 26 U/L (6-50); Albumin Level 4.7 g/dL (3.5-5.1); Alkaline Phosphatase 98 U/L (38-126); Anion Gap 10 mmol/L (4-12); Aspartate Amino Transferase 35 U/L (17-59); Bilirubin,Total 1.5 mg/dL (0.2-1.3); Blood Urea Nitrogen 19 mg/dL (9-20); Calcium 9.1 mg/dL (8.4-10.2); Carbon Dioxide 25 mmol/L (22-30); Chloride 105 mmol/L (98-107); Estimated CRCL calculation 81 ml/min; Estimated Glomerular Filt Rate > 60; Glucose 101 mg/dL (65-110); Magnesium 2.0 mg/dL (1.6-2.3); Potassium 4.1 mmol/L (3.4-5.0); Sodium 140 mmol/L (137-145); Total Protein 7.5 g/dL (6.3-8.2)
[2025-02-18] MEDS: ONDANSETRON INJ 4 MG/2 ML VIAL IV PUSH (22:03)
[2025-02-18] MEDS: MORPHINE SULFATE (*CRX) 4 MG/ML INJ IV PUSH (22:04)
--- NOTE | 2025-02-18 23:01 | ADMGEN ---
This patient, Allen Barfield, was admitted to Medical Room 342-01. Patient/family oriented to hospital policies and general routines including ID bracelet, bed and alarms, visiting hours, pain management, procedures, bathroom and other care routines, personal items, smoking policy, room service/diet, and visiting hours. Information on how to activate the Rapid Response Team has been discussed. Patient/Family are encouraged to report perceived risks to care and to ask questions if they do not understand what they are told or what they should do.
--- NOTE | 2025-02-18 23:14 | ADMGEN ---
This patient, Allen Barfield, was admitted to Medical Room 342-01. Received report from LIGIA Borja. Arrived to unit at 2300.Patient oriented to hospital policies and general routines including ID bracelet, bed and alarms, visiting hours, pain management, procedures, bathroom and other care routines, personal items, smoking policy, room service/diet, and visiting hours. Information on how to activate the Rapid Response Team has been discussed. Patient/Family are encouraged to report perceived risks to care and to ask questions if they do not understand what they are told or what they should do.
[2025-02-19] VITALS (8 sets, daily range): BP systolic 97–117; BP diastolic 59–72; PULSE 58–69; RESP 16–20; TEMP 36.9–37.7; O2SAT 93–97
[2025-02-19] MEDS: HYDROcodone/acetaminophen (*CRX) 5-325 MG TABLET 1 TAB PO (01:29)
--- NOTE | 2025-02-19 01:39 | PM.IMHP ---
H&P: HPI History of Present Illness Date/Time: 02/19/25 01:39 Chief Complaint: Fell from a truck Narrative: 54-year-old male with a past medical history the mild aortic stenosis, diastolic dysfunction BPH, essential hypertension, anxiety and hyperlipidemia who presented to the ER after he fell from the back of a standard pickup truck that he was loading a truck in the process of changing residence. He reported that he was stepping off the back the tailgate and landed wrong and fell on his left side. He had immediate pain but was able to get up had arrived to the ER in a wheelchair. He reports that unfortunately this is also the same hip that he has been having intermittent lateral hip pain that sounds suspicious for trochanteric bursitis. He reports that the pain is occurred intermittently on and off for a year so. But is been persistent for the last 4-5 weeks. However the pain is not stopped him from going to the gym and writing a cycle for 6 miles approximately every other day. He reports that the pain in his hip is more when he is up and standing in place or lying on his right side. He does have aortic stenosis but has not been having any lower extremity swelling, dyspnea on exertion, orthopnea or paroxysmal nocturnal dyspnea. He did not his head or lose consciousness with the fall. He has chronic urinary frequency with weak urine stream due to history of BPH. He denies any hematuria or dysuria. Review of Systems Review of Systems: 12 systems were reviewed with pertinent positives and negatives per HPI. Except as documented in the HPI, all other systems were reviewed and are negative. [facility] Past Medical History Medical History (Updated 02/19/25 @ 02:33 by Dottie Juares DO) Vitamin D deficiency Skin cancer, basal cell Asthma Essential hypertension Mixed hyperlipidemia Surgical History Surgical History (Updated 02/19/25 @ 02:27 by Dottie Juares DO) S/P TURP (status post transurethral resection of prostate) (08/25/18) Dr. Haas H/O colonoscopy Family History Family History Father Hypertension Family history of elevated blood lipids Family history of diabetes mellitus in first degree relative Family history of lung cancer Family history of coronary artery disease Tobacco abuse Mother Heart disease A-fib Sibling Diabetes mellitus Social History Social History (Updated 02/19/25 @ 07:41 by Dottie Juares DO) Social History: Patient is and lives in [facility]. He is in the process of moving in with his mother to help care for her. 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 He denies illicit substance use. He exercises by riding an and or bike 6 miles at least 3 times a week. Code status: Full code Surrogate decision maker: Sb Barfield (son) Smoking status: Never smoker Second hand tobacco smoke exposure: Yes Alcohol intake: current Drinks per week: 2 Substance use: never Substance use type: does not use Do You Feel Safe in your Home?: Yes Lack of Transportation: No Lack of Food: Never True Current Housing: I Have Housing Concerned About Future Housing: No Difficulty Paying Gas/Electric Bills: No Difficulty Paying for Meds: No Currently Unemployed: No Education: Bachelor's Degree Difficulty w/ Childcare or Family Care: No Living arrangements: with family Occupation/Education: occupation 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 Gender identity (if verbalized by the patient): Male Spiritual care concerns: No Meds Home Medications and Allergies Home Medications ?Medication ?Instructions ?Recorded ?Confirmed ?Type tamsulosin 0.4 mg capsule 0.8 mg PO DAILY 05/30/20 02/18/25 History lisinopril 40 mg tablet 40 mg PO DAILY #90 tabs 01/15/23 02/18/25 Rx rosuvastatin 20 mg tablet 20 mg PO DAILY 08/17/23 02/18/25 History albuterol 90 mcg-budesonide 80 2 inh inhalation 6XD PRN shortness 07/24/24 02/18/25 Rx mcg/actuation HFA aerosol inhaler of breath #32.1 grams (Airsupra) amlodipine 5 mg tablet See Rx Instructions .Route 12/04/24 02/18/25 Rx .COMPLEX #30 tabs montelukast 10 mg tablet See Rx Instructions .Route 12/25/24 02/18/25 Rx .COMPLEX #90 tabs escitalopram oxalate 10 mg tablet 10 mg PO DAILY #90 tabs 01/16/25 02/18/25 Rx (Lexapro) Allergies Allergy/AdvReac Type Severity Reaction Status Date / Time No Known Allergies Allergy Verified 02/18/25 18:31 Vital Signs Vital Signs - 24 hr 02/18/25 18:31 02/18/25 19:08 02/18/25 19:09 Temperature 97.6 F 98.2 F Pulse Rate 65 60 Respiratory Rate 18 13 13 Blood Pressure 147/59 H 124/73 Pulse Oximetry 97 100 100 Oxygen Delivery Room Air 02/18/25 19:15 02/18/25 19:16 02/18/25 19:30 Temperature Pulse Rate Respiratory Rate 14 13 18 Blood Pressure 125/73 128/63 Pulse Oximetry 98 99 99 Oxygen Delivery 02/18/25 19:45 02/18/25 21:12 02/18/25 21:15 Temperature Pulse Rate Respiratory Rate 18 15 15 Blood Pressure 107/78 128/81 128/74 Pulse Oximetry 100 99 99 Oxygen Delivery 02/18/25 22:31 02/18/25 23:10 02/18/25 23:17 Temperature 98.3 F Pulse Rate 64 60 Respiratory Rate 15 18 Blood Pressure 119/66 120/64 Pulse Oximetry 96 97 Oxygen Delivery Room Air Exam Narrative: Weight 80.2 kg BMI 24.7 Const: Other: Patient was sleeping soundly when I arrived in the room, No acute distress, height weight proportionate HENMT: Other: Mucous membranes are tacky, no oral pharyngeal erythema, crowded posterior oropharynx Eyes: Other: Pupils are equal and reactive, no scleral icterus, no conjunctival pallor Neck: Other: No JVD, no lymphadenopathy Resp: Other: Clear to auscultation bilaterally, no increased work of breathing Cardio: Other: Regular rate, regular rhythm, 2+ bilateral radial pedal pulses common no JVD, 2/6 systolic murmur GI: Other: Soft, nontender, nondistended, normoactive bowel sounds : Other: Pure wick catheter in place with dark yellow urine present Skin: Other: No jaundice, no pallor, no petechiae or bruising Neuro: Other: Alert oriented, speech is clear, no facial asymmetry, no localizing neurologic deficits noted during the course of conversation Extrem: Other: No clubbing, cyanosis or edema, no shortening or rotation of the right lower extremity, is tenderness to palpation over the right trochanter, distal extremity is neurovascularly intact Psych: Other: Appropriate mood and affect, pleasant and cooperative, judgment and insight intact H&P: Results Labs Labs: Laboratory Tests 02/18/25 21:25 02/18/25 21:25 02/18/25 21:25 WBC 13.1 H RBC 4.69 Hgb 14.1 Hct 42.6 MCV 90.8 MCH 30.1 MCHC 33.1 RDW 12.9 Plt Count 203 MPV 10.7 H Immature Gran % (Auto) 0.5 Neut % (Auto) 87.2 H Lymph % (Auto) 6.6 L [place] % (Auto) 5.4 Eos % (Auto) 0.0 Baso % (Auto) 0.3 Lymph # (Auto) 0.86 L [place] # (Auto) 0.7 H Eos # (Auto) 0.0 Baso # (Auto) 0.0 Abs Immat Gran (auto) 0.06 H Absolute Neuts (auto) 11.4 H Absolute Nucleated RBC 0.000 Nucleated RBC % 0.0 Sodium 140 Potassium 4.1 Chloride 105 Carbon Dioxide 25 Anion Gap 10 BUN 19 Creatinine 0.96 Estim Creat Clear Calc 81 Estimated GFR > 60 Glucose 101 Calcium 9.1 Magnesium 2.0 Total Bilirubin 1.5 H AST 35 ALT 26 Alkaline Phosphatase 98 Total Protein 7.5 Albumin 4.7 Blood Type O Positive Antibody Screen Negative EKG: Personally reviewed interpreted demonstrated normal sinus rhythm rate of 64 Assessment and Plan Assessment and plan (1) Closed intertrochanteric fracture of right femur: Qualifiers: Encounter type: initial encounter Fracture alignment: nondisplaced Qualified Code(s): S72.144A - Nondisplaced intertrochanteric fracture of right femur, initial encounter for closed fracture Code(s): S72.141A - Displaced intertrochanteric fracture of right femur, initial encounter for closed fracture Status: Acute (2) Essential hypertension: Code(s): I10 - Essential (primary) hypertension Status: Acute (3) BPH without urinary obstruction: Code(s): N40.0 - Benign prostatic hyperplasia without lower urinary tract symptoms Status: Acute (4) Anxiety: Code(s): F41.9 - Anxiety disorder, unspecified Status: Acute Plan The patient has fall from the bed of a truck and resulted in a right intratrochanteric fracture. Patient is NPO except for meds with sips. Will provide Schuyler for pain 4-6 and Schuyler 02/23/2025 for pain 7-10. The patient verbalizes preference for oral pain medications over morphine. Subsequently morphine is only been ordered for breakthrough pain. Will provide bowel regimen with scheduled Colace and p.r.n. docusate. Dr. Cameron Landeros has been consulted from Orthopedic surgery. The patient's blood pressures are stable will continue home antihypertensives. Patient does have history of mild aortic stenosis but is asymptomatic. Patient's BPH is controlled with Flomax will need to be monitored closely in the setting of her narcotic use and anticipated anesthesia. Will continue the patient's home Lexapro for anxiety. MEDICAL DECISION MAKING NARRATIVE -Spoke with the ED provider in detail regarding patient's evaluation, workup and management -Patient seen and examined at bedside -Collaborated with patient's nurse at the bedside in detail and addressed all concerns -Labs, electrolytes, radiology, investigations and test results personally reviewed and interpreted unless otherwise specified -ED/Consult/Nursing/Ancilliary notes on the chart reviewed and appreciated -Spoke with patient at bedside and diagnosis and plan of care was discussed. All questions answered. Quality VTE Prophylaxis VTE prophylaxis: mechanical ordered (SCDs) and pharmacologic ordered (Lovenox 40 mg subQ daily to start 02/20/2025) Hospitalist [facility] Advance Care Plan I have confirmed that the patient's Advanced Care Plan is present, code status is documented, or surrogate decision maker is listed in patient medical record.: Yes Medication Reconciliation I have utilized all available resources to obtain, update and review the patients current medications (includes all prescriptions, OTC, herbals, cannabis, and nutritional supplements).: Yes
[2025-02-19] MEDS: HYDROmorphone HCL INJ (*CRX) 1 MG/ML SYR IV PUSH ×2 (05:41→17:24)
[2025-02-19] MEDS: HYDROcodone/acetaminophen (*CRX) 10-325 MG TABLET 1 TAB PO ×3 (09:01→20:49)
[2025-02-19] MEDS: TAMSULOSIN HCL 0.4 MG CAPSULE PO ×2 (09:05→20:51)
--- NOTE | 2025-02-19 09:16 | PM.IMPN ---
Progress Note: A&P Assessment and Plan (1) Closed intertrochanteric fracture of right femur: Qualifiers: Encounter type: initial encounter Fracture alignment: nondisplaced Qualified Code(s): S72.144A - Nondisplaced intertrochanteric fracture of right femur, initial encounter for closed fracture Code(s): S72.141A - Displaced intertrochanteric fracture of right femur, initial encounter for closed fracture Status: Acute (2) Essential hypertension: Code(s): I10 - Essential (primary) hypertension Status: Acute (3) BPH without urinary obstruction: Code(s): N40.0 - Benign prostatic hyperplasia without lower urinary tract symptoms Status: Acute (4) Anxiety: Code(s): F41.9 - Anxiety disorder, unspecified Status: Acute Plan 1. Right intratrochanteric fracture Ortho consulted-plan for surgery for 02/20 Pain control, NPO at midnight Will add Dilaudid 0.5 mg hourly p.r.n. was In[place] Bowel regiment as he is on [place] 2. Hypertension Resume amlodipine Will hold lisinopril a day prior to surgery 3. Anxiety/depression Resume home medication 4. BPH Resume tamsulosin Time Spent With Patient Time: 35 minutes Subjective Date/time seen: 02/19/25 09:16 Interval history: Pain well controlled. Will add Dilaudid for his pain control. He is scheduled for right hip fracture surgery for tomorrow. NPO midnight Exam Narrative: APPEARANCE: No acute distress, a pleasant gentleman. EYES: EOMI HEENT: Normocephalic, atraumatic, OMM RESPIRATORY: No respiratory distress Clear to auscultation bilaterally with no rhonchi wheezing or rales. CARDIOVASCULAR: RRR, S1 and S2 without murmurs rubs or gallops. ABDOMINAL: Soft, nontender, nondistended, no rebound or guarding MUSCULOSKELETAl: Range of motion of the right limb is restricted due to pain NEURO: Awake and alert. Following commands, speech normal, no focal deficits SKIN:: Warm, dry. No rashes lesions or abrasions PSYCHIATRIC: Normal affect/mood, Objective Data Vital Signs Vital Signs: Vital Signs - 24 hr 02/18/25 18:31 02/18/25 19:08 02/18/25 19:09 Temperature 36.4 C 36.8 C Pulse Rate 65 60 Respiratory Rate 18 13 13 Blood Pressure 147/59 H 124/73 Pulse Oximetry 97 100 100 Oxygen Delivery Room Air 02/18/25 19:15 02/18/25 19:16 02/18/25 19:30 Temperature Pulse Rate Respiratory Rate 14 13 18 Blood Pressure 125/73 128/63 Pulse Oximetry 98 99 99 Oxygen Delivery 02/18/25 19:45 02/18/25 21:12 02/18/25 21:15 Temperature Pulse Rate Respiratory Rate 18 15 15 Blood Pressure 107/78 128/81 128/74 Pulse Oximetry 100 99 99 Oxygen Delivery 02/18/25 22:31 02/18/25 23:10 02/18/25 23:17 Temperature 36.8 C Pulse Rate 64 60 Respiratory Rate 15 18 Blood Pressure 119/66 120/64 Pulse Oximetry 96 97 Oxygen Delivery Room Air 02/19/25 05:44 02/19/25 08:00 02/19/25 09:06 Temperature 37.7 C H 37.1 C Pulse Rate 58 L 67 Respiratory Rate 18 16 Blood Pressure 117/67 110/59 L Pulse Oximetry 96 97 95 Oxygen Delivery Room Air Intake/Output Intake/Output: Intake & Output 02/16/25 02/17/25 02/18/25 02/19/25 23:59 23:59 23:59 23:59 Output Total 200 Balance -200 Meds/Results Medications: Active Medications Generic Name Dose Route Start Last Admin Trade Name Freq PRN Reason Stop Dose Admin Hydrocodone Bitart/Acetaminophen 1 tab 02/19/25 01:20 02/19/25 01:29 Hydrocodone/Acetaminophen (*Crx) 5-325 Mg Tablet PO 1 tab Q4H PRN Administration Pain Rated 4-6 Hydrocodone Bitart/Acetaminophen 1 tab 02/19/25 01:20 02/19/25 09:01 Hydrocodone/Acetaminophen (*Crx) 10-325 Mg Tablet PO 1 tab Q4H PRN Administration Pain Rated 7-10 Amlodipine Besylate 5 mg 02/19/25 09:00 02/19/25 09:07 Amlodipine Besylate 5 Mg Tablet PO 5 mg DAILY TORSTEN Administration Bisacodyl 5 mg 02/19/25 01:24 Bisacodyl 5 Mg Tablet Ec PO QAM PRN Constipation Calcium Carbonate 200 mg 02/19/25 01:24 Calcium Carbonate (Tums) 500 Mg (200 Mg Elemental) PO Q6H PRN Indigestion Docusate Sodium 100 mg 02/19/25 09:00 02/19/25 09:04 Docusate Sodium 100 Mg Capsule PO Not Given Q12HR [facility] Escitalopram Oxalate 10 mg 02/19/25 09:00 Escitalopram Oxalate 10 Mg Tablet PO DAILY [facility] Hydromorphone HCl 1 mg 02/19/25 05:06 02/19/25 05:41 Hydromorphone Hcl Inj (*Crx) 1 Mg/Ml Syr IV PUSH 1 mg Q3H PRN Administration Pain Rated 7-10 Lisinopril 40 mg 02/19/25 09:00 02/19/25 09:08 Lisinopril 20 Mg Tablet PO 40 mg DAILY [facility] Administration Miscellaneous Information 1 each 02/19/25 00:01 Albuterol-Budesonide [Airsupra] 90-80 Mcg/Actuation Hfa Aerosol Inhaler Is Nonformulary, C XX 03/21/25 00:00 CLARIFY [facility] Montelukast Sodium 10 mg 02/19/25 09:00 02/19/25 09:04 Montelukast Sodium 10 Mg Tablet PO Not Given DAILY [facility] Non-Formulary Medication 2 inhalation 02/19/25 01:19 Albuterol-Budesonide [Airsupra] INHALATION 6XD PRN shortness of breath Ondansetron HCl 4 mg 02/19/25 01:24 Ondansetron Inj 4 Mg/2 Ml Vial IV PUSH Q6H PRN Nausea And Vomiting Tamsulosin HCl 0.4 mg 02/19/25 09:00 02/19/25 09:05 Tamsulosin Hcl 0.4 Mg Capsule PO 0.4 mg Q12HR [facility] Administration Labs Labs: Laboratory Results - last 24 hr 02/18/25 21:25 WBC 13.1 H RBC 4.69 Hgb 14.1 Hct 42.6 MCV 90.8 MCH 30.1 MCHC 33.1 RDW 12.9 Plt Count 203 MPV 10.7 H Immature Gran % (Auto) 0.5 Neut % (Auto) 87.2 H Lymph % (Auto) 6.6 L [place] % (Auto) 5.4 Eos % (Auto) 0.0 Baso % (Auto) 0.3 Lymph # (Auto) 0.86 L [place] # (Auto) 0.7 H Eos # (Auto) 0.0 Baso # (Auto) 0.0 Abs Immat Gran (auto) 0.06 H Absolute Neuts (auto) 11.4 H Absolute Nucleated RBC 0.000 Nucleated RBC % 0.0 Sodium 140 Potassium 4.1 Chloride 105 Carbon Dioxide 25 Anion Gap 10 BUN 19 Creatinine 0.96 Estim Creat Clear Calc 81 Estimated GFR > 60 Glucose 101 Calcium 9.1 Magnesium 2.0 Total Bilirubin 1.5 H AST 35 ALT 26 Alkaline Phosphatase 98 Total Protein 7.5 Albumin 4.7 Blood Type O Positive Antibody Screen Negative Quality VTE Prophylaxis VTE prophylaxis: mechanical ordered (SCDs) and pharmacologic ordered (Lovenox 40 mg subQ daily to start 02/20/2025)
--- NOTE | 2025-02-19 17:17 | PM.CNOR ---
Assessment and Plan Assessment and plan (1) Closed intertrochanteric fracture of right femur: Qualifiers: Encounter type: initial encounter Fracture alignment: nondisplaced Qualified Code(s): S72.144A - Nondisplaced intertrochanteric fracture of right femur, initial encounter for closed fracture Code(s): S72.141A - Displaced intertrochanteric fracture of right femur, initial encounter for closed fracture Status: Acute (2) Arthritis of right hip: Code(s): M16.11 - Unilateral primary osteoarthritis, right hip Status: Acute Plan Mildly displaced right hip intertrochanteric fracture. He does have mild arthritis in the hip. The fracture needs to be addressed primarily. ORIF with DHS plate is optimal given the mild displacement and potential for anatomic reduction. May likely benefit from total hip replacement in the future if the arthritis progresses. We discussed the risks, benefits, and alternatives to surgery. Proceed with ORIF right hip with dynamic hip screw. Plan for home discharge in 2 or 3 days. History of Present Illness HPI Consult date: 02/19/25 Chief complaint: Right Hip Fx Narrative: Patient complains of acute hip pain. Fell from a truck bed. Admitted through the emergency room for definitive management. Moderate hip pain intermittently over the past few weeks. Has been doing repetitive lifting while moving his residence. Comfortable at rest. No numbness, tingling, or other associated symptoms. Review of Systems Review of Systems: Denies loss of consciousness. All systems reviewed & are unremarkable except as noted in HPI and below PMFSH Past Medical History Medical History (Updated 02/19/25 @ 17:20 by Cameron Landeros MD) Arthritis of right hip Vitamin D deficiency Skin cancer, basal cell Asthma Essential hypertension Mixed hyperlipidemia Surgical History Surgical History S/P TURP (status post transurethral resection of prostate) (08/25/18) Dr. Haas H/O colonoscopy Family History Family History Father Hypertension Family history of elevated blood lipids Family history of diabetes mellitus in first degree relative Family history of lung cancer Family history of coronary artery disease Tobacco abuse Mother Heart disease A-fib Sibling Diabetes mellitus Social History Social History Social History: Patient is and lives in [facility]. He is in the process of moving in with his mother to help care for her. 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 He denies illicit substance use. He exercises by riding an and or bike 6 miles at least 3 times a week. Code status: Full code Surrogate decision maker: Sb Barfield (son) Smoking status: Never smoker Second hand tobacco smoke exposure: Yes Alcohol intake: current Drinks per week: 2 Substance use: never Substance use type: does not use Do You Feel Safe in your Home?: Yes Lack of Transportation: No Lack of Food: Never True Current Housing: I Have Housing Concerned About Future Housing: No Difficulty Paying Gas/Electric Bills: No Difficulty Paying for Meds: No Currently Unemployed: No Education: Bachelor's Degree Difficulty w/ Childcare or Family Care: No Living arrangements: with family Occupation/Education: occupation 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 Gender identity (if verbalized by the patient): Male Spiritual care concerns: No Meds Home Medications and Allergies Home Medications ?Medication ?Instructions ?Recorded ?Confirmed ?Type tamsulosin 0.4 mg capsule 0.8 mg PO DAILY 05/30/20 02/18/25 History lisinopril 40 mg tablet 40 mg PO DAILY #90 tabs 01/15/23 02/18/25 Rx rosuvastatin 20 mg tablet 20 mg PO DAILY 08/17/23 02/18/25 History albuterol 90 mcg-budesonide 80 2 inh inhalation 6XD PRN shortness 07/24/24 02/18/25 Rx mcg/actuation HFA aerosol inhaler of breath #32.1 grams (Airsupra) amlodipine 5 mg tablet See Rx Instructions .Route 12/04/24 02/18/25 Rx .COMPLEX #30 tabs montelukast 10 mg tablet See Rx Instructions .Route 12/25/24 02/18/25 Rx .COMPLEX #90 tabs escitalopram oxalate 10 mg tablet 10 mg PO DAILY #90 tabs 01/16/25 02/18/25 Rx (Lexapro) Allergies Allergy/AdvReac Type Severity Reaction Status Date / Time No Known Allergies Allergy Verified 02/18/25 18:31 Vital Signs Vital Signs - 24 hr 02/18/25 18:31 02/18/25 19:08 02/18/25 19:09 Temperature 36.4 C 36.8 C Pulse Rate 65 60 Respiratory Rate 18 13 13 Blood Pressure 147/59 H 124/73 Pulse Oximetry 97 100 100 Oxygen Delivery Room Air 02/18/25 19:15 02/18/25 19:16 02/18/25 19:30 Temperature Pulse Rate Respiratory Rate 14 13 18 Blood Pressure 125/73 128/63 Pulse Oximetry 98 99 99 Oxygen Delivery 02/18/25 19:45 02/18/25 21:12 02/18/25 21:15 Temperature Pulse Rate Respiratory Rate 18 15 15 Blood Pressure 107/78 128/81 128/74 Pulse Oximetry 100 99 99 Oxygen Delivery 02/18/25 22:31 02/18/25 23:10 02/18/25 23:17 Temperature 36.8 C Pulse Rate 64 60 Respiratory Rate 15 18 Blood Pressure 119/66 120/64 Pulse Oximetry 96 97 Oxygen Delivery Room Air 02/19/25 05:44 02/19/25 08:00 02/19/25 09:00 Temperature 37.7 C H 37.1 C Pulse Rate 58 L 67 Respiratory Rate 18 16 Blood Pressure 117/67 110/59 L Pulse Oximetry 96 97 95 Oxygen Delivery Room Air 02/19/25 09:06 02/19/25 12:00 02/19/25 16:00 Temperature 37.0 C 36.9 C Pulse Rate 66 69 Respiratory Rate 17 18 Blood Pressure 98/62 L 106/61 Pulse Oximetry 95 95 94 Oxygen Delivery Room Air Exam Narrative: No lower extremity deformity. Const: General: no acute distress Eyes: General: appearance normal, both eyes and all related structures Resp: Effort & Inspection: normal respiratory effort GI: GI Palp: Yes Soft to palpation and No Guarding due to palpation present (GI) Urinary Catheter: Urinary Catheter: patent and draining and urine clear Skin: General skin exam: no rashes or lesions noted Neuro: Speech: normal speech Other: Wiggles toes well. Capillary refill brisk. Distal light touch sensation intact. Dorsalis pedis pulse palpable. Extrem: Other: No edema. Psych: Mental Status: mental status grossly normal Results Labs 02/18/25 21:25 02/18/25 21:25 Labs: Abnormal lab results 02/18/25 Range/Units 21:25 WBC 13.1 H (4.5-10.0) K/mm3 MPV 10.7 H (7.4-10.4) fl Neut % (Auto) 87.2 H (45.5-73.1) % Lymph % (Auto) 6.6 L (18.3-44.2) % Lymph # (Auto) 0.86 L (0.9-3.2) K/mm3 [place] # (Auto) 0.7 H (0.1-0.6) K/mm3 Abs Immat Gran (auto) 0.06 H (0.00-0.031) K/mm3 Absolute Neuts (auto) 11.4 H (1.3-6.7) K/mm3 Total Bilirubin 1.5 H (0.2-1.3) mg/dL H & H 02/18/25 Range/Units 21:25 Hgb 14.1 (14.0-18.0) g/dL Hct 42.6 (42.0-52.0) % All other labs normal. Quality VTE Prophylaxis VTE prophylaxis: mechanical ordered
[2025-02-19] MEDS: ESCITALOPRAM OXALATE 10 MG TABLET PO (20:51)
[2025-02-19] MEDS: DOCUSATE SODIUM 100 MG CAPSULE PO (20:51)
[2025-02-20] VITALS (14 sets, daily range): BP systolic 103–144; BP diastolic 56–71; PULSE 57–75; RESP 15–20; TEMP 36.2–38.2; O2SAT 90–100
[2025-02-20] MEDS: HYDROcodone/acetaminophen (*CRX) 10-325 MG TABLET 1 TAB PO ×2 (00:45→04:57)
--- NOTE | 2025-02-20 07:11 | WPDHPUPDATE1 ---
History and Physical Update Update Date/Time: 02/20/25 07:11 History and Physical has been reviewed, including an updated exam of the patient. There are NO changes in the patient's condition. Risks, benefits, and alternatives have been discussed and questions answered. Patient agrees to proceed with procedure.
[2025-02-20] MEDS: TAMSULOSIN HCL 0.4 MG CAPSULE PO ×2 (09:13→19:47)
[2025-02-20] MEDS: HYDROcodone/acetaminophen (*CRX) 5-325 MG TABLET 1 TAB PO (10:47)
[2025-02-20] MEDS: LACTATED RINGERS 1,000 ML 30 ML IV CONT (13:05)
--- NOTE | 2025-02-20 13:23 | SUR.PREOP ---
HAIR REMOVAL DEFFERED DUE TO PAIN WITH TOUCH OR MOVEMENT.
--- NOTE | 2025-02-20 13:27 | WPDANESEPPF ---
Anes - Initial Pre Proc Eval Procedure: Operation Date: 02/20/25 15:00 Proposed Procedures p Open Reduction Internal Fixation Right Hip - Cameron Landeros MD Date/Time: 02/20/25 13:27 Surgeon: Dottie Juares DO Pre Op Diagnosis: Right Hip Fx Patient Data Age: 54 Gender: M Height: 1.8 m Weight: 80.2 kg Last Vital Signs Temp 98.7 F 02/20/25 12:00 Pulse 72 02/20/25 12:00 Resp 18 02/20/25 12:00 BP 144/64 H 02/20/25 12:00 Pulse Ox 96 02/20/25 12:00 O2 Del Method Room Air 02/19/25 20:30 FiO2 21 02/19/25 20:30 Allergies Allergy/AdvReac Type Severity Reaction Status Date / Time No Known Allergies Allergy Verified 02/18/25 18:31 Home Medications ?Medication ?Instructions ?Recorded ?Confirmed ?Type tamsulosin 0.4 mg capsule 0.8 mg PO DAILY 05/30/20 02/18/25 History lisinopril 40 mg tablet 40 mg PO DAILY #90 tabs 01/15/23 02/18/25 Rx rosuvastatin 20 mg tablet 20 mg PO DAILY 08/17/23 02/18/25 History albuterol 90 mcg-budesonide 80 2 inh inhalation 6XD PRN shortness 07/24/24 02/18/25 Rx mcg/actuation HFA aerosol inhaler of breath #32.1 grams (Airsupra) amlodipine 5 mg tablet See Rx Instructions .Route 12/04/24 02/18/25 Rx .COMPLEX #30 tabs montelukast 10 mg tablet See Rx Instructions .Route 12/25/24 02/18/25 Rx .COMPLEX #90 tabs escitalopram oxalate 10 mg tablet 10 mg PO DAILY #90 tabs 01/16/25 02/18/25 Rx (Lexapro) Patient hx anesthesia problems: none Family hx anesthesia problems: none Results Review: All pre-operative results and documents have been reviewed as part of the pre-operative evaluation. [facility] Past Medical History Medical History (Updated 02/19/25 @ 17:20 by Cameron Landeros MD) Arthritis of right hip Vitamin D deficiency Skin cancer, basal cell Asthma Essential hypertension Mixed hyperlipidemia Surgical History Surgical History S/P TURP (status post transurethral resection of prostate) (08/25/18) Dr. Haas H/O colonoscopy Family History Family History Father Hypertension Family history of elevated blood lipids Family history of diabetes mellitus in first degree relative Family history of lung cancer Family history of coronary artery disease Tobacco abuse Mother Heart disease A-fib Sibling Diabetes mellitus Social History Social History Social History: Patient is and lives in [facility]. He is in the process of moving in with his mother to help care for her. 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 He denies illicit substance use. He exercises by riding an and or bike 6 miles at least 3 times a week. Code status: Full code Surrogate decision maker: Sb Barfield (son) Smoking status: Never smoker Second hand tobacco smoke exposure: Yes Alcohol intake: current Drinks per week: 2 Substance use: never Substance use type: does not use Do You Feel Safe in your Home?: Yes Lack of Transportation: No Lack of Food: Never True Current Housing: I Have Housing Concerned About Future Housing: No Difficulty Paying Gas/Electric Bills: No Difficulty Paying for Meds: No Currently Unemployed: No Education: Bachelor's Degree Difficulty w/ Childcare or Family Care: No Living arrangements: with family Occupation/Education: occupation 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 Informed Consent: The patient's anesthetic plan and its attendant risks and benefits were discussed with the patient/family/POA. Questions were solicited and answers provided to the satisfaction of the patient/family/POA.
[2025-02-20] MEDS: TRANEXAMIC ACID 1,000MG/ISO100 1,000 MG/100 ML BAG 200 MG IVPB (13:28)
[2025-02-20] MEDS: ACETAMINOPHEN 500 MG TABLET 1000 MG PO (13:48)
[2025-02-20] MEDS: ceFAZolin 2 GM in SODIUM CHLORIDE 0.9% IV 50 ML 100 ML IVPB ×2 (13:54→20:58)
[2025-02-20] MEDS: BUPIVACAINE/EPINEPHRINE 0.5% 50 ML VIAL 30 ML INFILTRATE (14:33)
--- NOTE | 2025-02-20 17:14 | PM.IMPN ---
Progress Note: A&P Assessment and Plan (1) Closed intertrochanteric fracture of right femur: Qualifiers: Encounter type: initial encounter Fracture alignment: nondisplaced Qualified Code(s): S72.144A - Nondisplaced intertrochanteric fracture of right femur, initial encounter for closed fracture Code(s): S72.141A - Displaced intertrochanteric fracture of right femur, initial encounter for closed fracture Status: Acute (2) Essential hypertension: Code(s): I10 - Essential (primary) hypertension Status: Acute (3) BPH without urinary obstruction: Code(s): N40.0 - Benign prostatic hyperplasia without lower urinary tract symptoms Status: Acute (4) Anxiety: Code(s): F41.9 - Anxiety disorder, unspecified Status: Acute Plan 1. Right intratrochanteric fracture Ortho consulted-plan for surgery for 02/20 Pain control, NPO at midnight Will add Dilaudid 0.5 mg hourly p.r.n. was [place] Bowel regiment as he is on [place] 2. Hypertension Resume amlodipine Will hold lisinopril a day prior to surgery 3. Anxiety/depression Resume home medication 4. BPH Resume tamsulosin DVT prophylaxis on Sq Lovenox Subjective Date/time seen: 02/20/25 17:14 Interval history: Comfortable at bedside for OR today Review of Systems Review of Systems: 12 systems were reviewed with pertinent positives and negatives per HPI. Except as documented in the HPI, all other systems were reviewed and are negative. Exam Narrative: APPEARANCE: No acute distress, a pleasant gentleman. EYES: EOMI HEENT: Normocephalic, atraumatic, OMM RESPIRATORY: No respiratory distress Clear to auscultation bilaterally with no rhonchi wheezing or rales. CARDIOVASCULAR: RRR, S1 and S2 without murmurs rubs or gallops. ABDOMINAL: Soft, nontender, nondistended, no rebound or guarding MUSCULOSKELETAl: Range of motion of the right limb is restricted due to pain NEURO: Awake and alert. Following commands, speech normal, no focal deficits SKIN:: Warm, dry. No rashes lesions or abrasions PSYCHIATRIC: Normal affect/mood, Const: Other: Patient was sleeping soundly when I arrived in the room, No acute distress, height weight proportionate HENMT: Other: Mucous membranes are tacky, no oral pharyngeal erythema, crowded posterior oropharynx Eyes: Other: Pupils are equal and reactive, no scleral icterus, no conjunctival pallor Neck: Other: No JVD, no lymphadenopathy Resp: Other: Clear to auscultation bilaterally, no increased work of breathing Cardio: Other: Regular rate, regular rhythm, 2+ bilateral radial pedal pulses common no JVD, 2/6 systolic murmur GI: Other: Soft, nontender, nondistended, normoactive bowel sounds : Other: Pure wick catheter in place with dark yellow urine present Skin: Other: No jaundice, no pallor, no petechiae or bruising Neuro: Other: Alert oriented, speech is clear, no facial asymmetry, no localizing neurologic deficits noted during the course of conversation Extrem: Other: No clubbing, cyanosis or edema, no shortening or rotation of the right lower extremity, is tenderness to palpation over the right trochanter, distal extremity is neurovascularly intact Psych: Other: Appropriate mood and affect, pleasant and cooperative, judgment and insight intact Objective Data Vital Signs Vital Signs: Vital Signs - 24 hr 02/19/25 20:00 02/19/25 20:00 02/19/25 20:30 Temperature 98.9 F Pulse Rate 62 62 Respiratory Rate 20 Blood Pressure 97/72 L Pulse Oximetry 93 93 Oxygen Delivery Room Air Room Air Oxygen Flow Rate Fraction of Inspired Oxygen 21 02/20/25 00:00 02/20/25 04:00 02/20/25 08:00 Temperature 99.5 F 99.8 F H 98.3 F Pulse Rate 75 69 66 Respiratory Rate 20 16 16 Blood Pressure 109/69 113/71 117/68 Pulse Oximetry 90 90 98 Oxygen Delivery Oxygen Flow Rate Fraction of Inspired Oxygen 02/20/25 08:00 02/20/25 12:00 02/20/25 13:10 Temperature 98.7 F 100.8 F H Pulse Rate 72 72 Respiratory Rate 18 16 Blood Pressure 144/64 H 107/66 Pulse Oximetry 100 96 92 Oxygen Delivery Room Air Room Air Oxygen Flow Rate Fraction of Inspired Oxygen 02/20/25 15:34 02/20/25 15:45 02/20/25 16:00 Temperature 97.2 F L Pulse Rate 66 66 70 Respiratory Rate 15 20 16 Blood Pressure 105/63 114/69 111/56 L Pulse Oximetry 100 99 91 Oxygen Delivery Simple Face Mask Simple Face Mask Room Air Oxygen Flow Rate 8 8 Fraction of Inspired Oxygen 02/20/25 16:15 02/20/25 16:40 Temperature 99.0 F Pulse Rate 68 66 Respiratory Rate 16 18 Blood Pressure 108/68 116/69 Pulse Oximetry 95 95 Oxygen Delivery Nasal Cannula Oxygen Flow Rate 2 Fraction of Inspired Oxygen Intake/Output Intake/Output: Intake & Output 02/17/25 02/18/25 02/19/25 02/20/25 23:59 23:59 23:59 23:59 Intake Total 960 400 Output Total 500 450 Balance 460 -50 Meds/Results Medications: Active Medications Generic Name Dose Route Start Last Admin Trade Name Freq PRN Reason Stop Dose Admin Acetaminophen 650 mg 02/20/25 18:00 Acetaminophen 325 Mg Tablet PO Q6HR [facility] Amlodipine Besylate 5 mg 02/19/25 09:00 02/20/25 09:13 Amlodipine Besylate 5 Mg Tablet PO 5 mg DAILY [facility] Administration Aspirin 81 mg 02/20/25 21:00 Aspirin 81 Mg Enteric Tablet PO Q12HR [facility] Bisacodyl 5 mg 02/19/25 01:24 Bisacodyl 5 Mg Tablet Ec PO QAM PRN Constipation Calcium Carbonate 200 mg 02/19/25 01:24 Calcium Carbonate (Tums) 500 Mg (200 Mg Elemental) PO Q6H PRN Indigestion Cyclobenzaprine HCl 10 mg 02/20/25 16:24 Cyclobenzaprine Hcl 10 Mg Tablet PO Q8H PRN Muscle Spasm Docusate Sodium 100 mg 02/19/25 09:00 02/20/25 08:27 Docusate Sodium 100 Mg Capsule PO Not Given Q12HR [facility] Escitalopram Oxalate 10 mg 02/19/25 21:00 02/20/25 08:27 Escitalopram Oxalate 10 Mg Tablet PO Not Given DAILY [facility] Famotidine 20 mg 02/20/25 21:00 Famotidine 20 Mg Tablet PO Q12HR [facility] Hydromorphone HCl 1 mg 02/20/25 16:24 Hydromorphone Hcl Inj (*Crx) 1 Mg/Ml Syr IV PUSH Q2H PRN Breakthrough Pain Rated 7-10 or NPO Hydromorphone HCl 0.5 mg 02/20/25 16:24 Hydromorphone Hcl Inj (*Crx) 1 Mg/Ml Syr IV PUSH Q2H PRN Breakthrough Pain Rated 4-6 or NPO Hydroxyzine Pamoate 50 mg 02/20/25 16:24 Hydroxyzine Pamoate 25 Mg Capsule PO Q4H PRN Itching Lactated Ringer's 1,000 mls @ 30 mls/hr 02/20/25 13:40 02/20/25 16:23 Lr - Lactated Ringers Iv IV CONT Infused .Q24H [facility] Infusion Lactated Ringer's 1,000 mls @ 30 mls/hr 02/20/25 13:40 02/20/25 16:40 Lr - Lactated Ringers Iv IV CONT Not Given .Q24H [facility] Cefazolin Sodium 2 gm/ Sodium 50 mls @ 100 mls/hr 02/20/25 22:00 Chloride IVPB 02/21/25 14:29 Q8H [facility] Sodium Chloride 1,000 mls @ 125 mls/hr 02/20/25 16:24 Normal Saline Iv IV CONT .Q8H [facility] Ibuprofen 800 mg in 200 mls @ 400 mls/hr 02/20/25 16:24 Caldolor 800 Mg/200 Ml IVPB Q6H PRN Breakthrough Pain Rated 1-3 or NPO Lisinopril 40 mg 02/19/25 09:00 02/20/25 08:28 Lisinopril 20 Mg Tablet PO Not Given DAILY [facility] Montelukast Sodium 10 mg 02/19/25 09:00 02/20/25 08:28 Montelukast Sodium 10 Mg Tablet PO Not Given DAILY [facility] Naloxone HCl 0.1 mg 02/20/25 16:24 Naloxone Hcl 0.4 Mg/Ml Vial IV PUSH Q2M PRN Opiate Reversal Ondansetron HCl 4 mg 02/19/25 01:24 Ondansetron Inj 4 Mg/2 Ml Vial IV PUSH Q6H PRN Nausea And Vomiting Ondansetron HCl 4 mg 02/20/25 13:36 Ondansetron Inj 4 Mg/2 Ml Vial IV PUSH ONCE PRN Nausea Ondansetron HCl 4 mg 02/20/25 16:24 Ondansetron Inj 4 Mg/2 Ml Vial IV PUSH Q4H PRN Nausea And Vomiting Oxycodone/Acetaminophen 1 tablet 02/20/25 16:24 Oxycodone/Acetaminophen (*Crx) 5-325 Mg Tablet PO Q4H PRN Pain Rated 4-6 Oxycodone/Acetaminophen 1 tab 02/20/25 16:24 Oxycodone/Acetaminophen (*Crx) 10-325 Mg Tablet PO Q6H PRN Pain Rated 7-10 Polyethylene Glycol 17 gm 02/21/25 09:00 Polyethylene Glycol 3350 17 Gm Powd.Pack PO QAM [facility] Rosuvastatin Calcium 20 mg 02/20/25 09:00 02/20/25 08:28 Rosuvastatin 20 Mg Tablet PO Not Given DAILY [facility] Senna/Docusate Sodium 2 tab 02/20/25 17:00 Senna/Docusate Sodium Tablet PO BID [facility] Tamsulosin HCl 0.4 mg 02/19/25 09:00 02/20/25 09:13 Tamsulosin Hcl 0.4 Mg Capsule PO 0.4 mg Q12HR [facility] Administration Tramadol HCl 50 mg 02/20/25 16:24 Tramadol Hcl (*Crx) 50 Mg Tablet PO Q4H PRN Pain Rated 1-3 Radiology Results: ITS Impressions Intraoperative X-Ray 02/20/25 15:20 IMPRESSION: 1. Near-anatomic alignment post open reduction internal fixation of an intertrochanteric fracture the proximal right femur. Quality VTE Prophylaxis VTE prophylaxis: mechanical ordered
--- NOTE | 2025-02-20 17:36 | P.OP_ITS ---
Procedure Note - Detailed Date of Procedure 02/20/25 Pre-op Diagnosis Displaced right hip intertrochanteric fracture. Post-op Diagnosis Same Procedure Performed ORIF right hip intertrochanteric fracture with dynamic hip screw Surgeon Cameron Landeros MD Lead Business Systems Analyst Toya Pepper PA-C Anesthesia General Description of Procedure Preoperative antibiotics were given. A general anesthetic was administered. The patient was carefully placed on the fracture table. Gentle closed reduction was obtained. Biplanar fluoroscopy was used throughout the procedure to confirm anatomic reduction, and appropriate placement of all implants. The hip was prepped and draped in the usual sterile fashion. A longitudinal incision was created at the proximal femur. Lateral dissection was brought down through subcutaneous tissue to the fascia. The fascia was split in line with its fibers. The vastus lateralis was identified and also split in line with its fibers. The guide was placed along the femur and the guide pin placed just below the center of the femoral head. The 135 degree guide was used. The pin was measured and the triple reamer used. The lag screw was placed 10 millimeters proximal to the subchondral bone. Appropriate alignment of the screw was placed and then the side plate was applied. It was compressed to the screw. Two large fragment screws were placed through the plate. The wound was copiously irrigated. The vastus lateralis, and deep fascia were closed with running # 1 Vicryl suture. The subcutaneous tissues were closed with # 1 Vicryl suture followed by 2-0 Vicryl suture and edson. A sterile bulky dressing was applied. The patient was extubated and brought to the recovery room in stable condition. There were no complications. Physician blood bank assistant, Toya Pepper PA-C, required for surgery; including patient positioning on the fracture table, draping, tissue retraction, maintaining instrument position, wound closure, and dressing placement. Implants Synthes/ DePuy 135 degree dynamic hip screw, 2 hole DHS plate, standard barrel Estimated Blood Loss 200 Urine Output 300 Drains No Packing No Pathology None sent Complications No immediate complications Condition Stable Disposition PACU [facility] Billing Surgery - Charge Forward: Surgery Billing
[2025-02-20] MEDS: ACETAMINOPHEN 325 MG TABLET 650 MG PO ×2 (17:47→23:49)
[2025-02-20] MEDS: SENNA/DOCUSATE SODIUM TABLET 2 TAB PO (17:47)
[2025-02-20] MEDS: FAMOTIDINE 20 MG TABLET PO (19:47)
[2025-02-20] MEDS: DOCUSATE SODIUM 100 MG CAPSULE PO (19:47)
[2025-02-20] MEDS: oxyCODONE/ACETAMINOPHEN (*CRX) 5-325 MG TABLET 1 TABLET PO (19:48)
[2025-02-20] MEDS: ASPIRIN 81 MG ENTERIC TABLET PO (19:48)
[2025-02-21 00:55] VITALS: BP 107/65; PULSE 54; RESP 16; TEMP 36.7; O2SAT 95
[2025-02-21] MEDS: ACETAMINOPHEN 325 MG TABLET 650 MG PO ×2 (05:05→13:07)
[2025-02-21] MEDS: ceFAZolin 2 GM in SODIUM CHLORIDE 0.9% IV 50 ML 100 ML IVPB (05:05)
[2025-02-21 05:43] LABS: Hematocrit 39.6 % (42.0-52.0); Hemoglobin 12.6 g/dL (14.0-18.0); Immature Granulocyte Percent A 0.6 % (0-0.5); Lymphocytes Absolute Auto 0.47 K/mm3 (0.9-3.2); Mean Corpuscular HGB Conc 31.8 g/dl (32-36); Mean Corpuscular Hemoglobin 29.8 pg (26-34); Mean Corpuscular Volume 93.6 fl (80-100); Nucleated Red Blood Cells Absolute Auto 0.000 K/mm3 (0.0-0.012); Nucleated Red Blood Cells Perc 0.0 % (0.0-0.2); Platelet Count Result 143 k/mm3 (150-375); Red Blood Count 4.23 M/mm3 (4.6-6.20); White Blood Count 12.7 K/mm3 (4.5-10.0)
[2025-02-21 05:54] LABS: Anion Gap 6 mmol/L (4-12); Blood Urea Nitrogen 17 mg/dL (9-20); Calcium 8.8 mg/dL (8.4-10.2); Carbon Dioxide 30 mmol/L (22-30); Chloride 100 mmol/L (98-107); Estimated CRCL calculation 89 ml/min; Estimated Glomerular Filt Rate > 60; Glucose 127 mg/dL (65-110); Potassium 4.6 mmol/L (3.4-5.0); Sodium 136 mmol/L (137-145)
[2025-02-21 06:06] VITALS: BP 106/68; PULSE 53; RESP 14; TEMP 36.6; O2SAT 95
--- NOTE | 2025-02-21 07:59 | PM.PNORT ---
Progress Note: A&P Assessment and Plan (1) Closed intertrochanteric fracture of right femur: Qualifiers: Encounter type: initial encounter Fracture alignment: nondisplaced Qualified Code(s): S72.144A - Nondisplaced intertrochanteric fracture of right femur, initial encounter for closed fracture Code(s): S72.141A - Displaced intertrochanteric fracture of right femur, initial encounter for closed fracture Status: Acute (2) Arthritis of right hip: Code(s): M16.11 - Unilateral primary osteoarthritis, right hip Status: Acute Plan Postop day 1: ORIF right hip intertrochanteric fracture with dynamic hip screw Patient tolerated procedure well. No complications. Pain manageable with pain medication. No numbness or tingling. We had a lengthy discussion regarding postoperative wound care, limitations, expectations, and exercises. Patient shows good understanding. He has had initial physical therapy and is tolerating it well. Okay to discharge home when cleared medically and he is cleared with PT/OT. He may or may not need home health PT. Ortho instructions: D/C home +/- Home health. Follow up in office with and Xray in 2 weeks. Will remove edson then. Wound Care: Remove edson at 2 weeks post op. Daily dressing changes with gauze and tape until healed. PT: Weight bearing as tolerated with a walker. DVT prophylaxis: 81 mg baby aspirin b.i.d. for 14 days. Compression socks for 3 weeks. Short frequent walks. Pain medication: Oxycodone Subjective Subjective Date/Time Seen: 02/21/25 07:59 Interval history: Patient resting comfortably. Minimal pain. Has been up with the walker. No numbness or tingling. Review of Systems Review of Systems: All systems reviewed & are unremarkable except as noted in HPI and below Exam Narrative: Normal weight 54 y/o Male. Resting comfortably in bed. Wearing compression socks bilaterally. Dressing dry and intact with no drainage. Mild swelling. No distal edema. No ecchymosis. No erythema. No hematoma. Range of motion limited due to pain. Calf nontender. Thigh nontender. No varicosities. Distal pulses palpable. Wiggles toes. Objective Data Vital Signs Vital Signs: Vital Signs - 24 hr 02/20/25 08:00 02/20/25 08:00 02/20/25 12:00 Temperature 98.3 F 98.7 F Pulse Rate 66 72 Respiratory Rate 16 18 Blood Pressure 117/68 144/64 H Pulse Oximetry 98 100 96 Oxygen Delivery Room Air Oxygen Flow Rate 02/20/25 13:10 02/20/25 15:34 02/20/25 15:45 Temperature 100.8 F H 97.2 F L Pulse Rate 72 66 66 Respiratory Rate 16 15 20 Blood Pressure 107/66 105/63 114/69 Pulse Oximetry 92 100 99 Oxygen Delivery Room Air Simple Face Mask Simple Face Mask Oxygen Flow Rate 8 8 02/20/25 16:00 02/20/25 16:15 02/20/25 16:40 Temperature 99.0 F Pulse Rate 70 68 66 Respiratory Rate 16 16 18 Blood Pressure 111/56 L 108/68 116/69 Pulse Oximetry 91 95 95 Oxygen Delivery Room Air Nasal Cannula Oxygen Flow Rate 2 02/20/25 17:25 02/20/25 18:10 02/20/25 20:00 Temperature 99.2 F 99 F Pulse Rate 66 62 Respiratory Rate 17 18 Blood Pressure 103/64 105/63 Pulse Oximetry 90 91 95 Oxygen Delivery Room Air Oxygen Flow Rate 02/20/25 21:33 02/21/25 00:55 02/21/25 06:06 Temperature 97.4 F L 98.1 F 97.9 F Pulse Rate 57 L 54 L 53 L Respiratory Rate 16 16 14 Blood Pressure 110/66 107/65 106/68 Pulse Oximetry 95 95 95 Oxygen Delivery Oxygen Flow Rate Intake/Output Intake/Output: Intake & Output 02/18/25 02/19/25 02/20/25 02/21/25 23:59 23:59 23:59 23:59 Intake Total 960 880 350 Output Total 500 750 900 Balance 460 130 -550 Meds/Results Medications: Active Medications Generic Name Dose Route Start Last Admin Trade Name Freq PRN Reason Stop Dose Admin Acetaminophen 650 mg 02/20/25 18:00 02/21/25 05:05 Acetaminophen 325 Mg Tablet PO 650 mg Q6HR [facility]ST[facility] Administration Amlodipine Besylate 5 mg 02/19/25 09:00 02/20/25 09:13 Amlodipine Besylate 5 Mg Tablet PO 5 mg DAILY [facility] Administration Aspirin 81 mg 02/20/25 21:00 02/20/25 19:48 Aspirin 81 Mg Enteric Tablet PO 81 mg Q12HR [facility]ORST[facility] Administration Bisacodyl 5 mg 02/19/25 01:24 Bisacodyl 5 Mg Tablet Ec PO QAM PRN Constipation Calcium Carbonate 200 mg 02/19/25 01:24 Calcium Carbonate (Tums) 500 Mg (200 Mg Elemental) PO Q6H PRN Indigestion Cyclobenzaprine HCl 10 mg 02/20/25 16:24 Cyclobenzaprine Hcl 10 Mg Tablet PO Q8H PRN Muscle Spasm Docusate Sodium 100 mg 02/19/25 09:00 02/20/25 19:47 Docusate Sodium 100 Mg Capsule PO 100 mg Q12HR [facility] Administration Enoxaparin Sodium 40 mg 02/21/25 09:00 Enoxaparin 40 Mg/0.4 Ml Syringe SUB-Q DAILY [facility] Escitalopram Oxalate 10 mg 02/19/25 21:00 02/20/25 08:27 Escitalopram Oxalate 10 Mg Tablet PO Not Given DAILY [facility] Famotidine 20 mg 02/20/25 21:00 02/20/25 19:47 Famotidine 20 Mg Tablet PO 20 mg Q12HR [facility] Administration Hydromorphone HCl 1 mg 02/20/25 16:24 Hydromorphone Hcl Inj (*Crx) 1 Mg/Ml Syr IV PUSH Q2H PRN Breakthrough Pain Rated 7-10 or NPO Hydromorphone HCl 0.5 mg 02/20/25 16:24 Hydromorphone Hcl Inj (*Crx) 1 Mg/Ml Syr IV PUSH Q2H PRN Breakthrough Pain Rated 4-6 or NPO Hydroxyzine Pamoate 50 mg 02/20/25 16:24 Hydroxyzine Pamoate 25 Mg Capsule PO Q4H PRN Itching Lactated Ringer's 1,000 mls @ 30 mls/hr 02/20/25 13:40 02/20/25 16:23 Lr - Lactated Ringers Iv IV CONT Infused .Q24H [facility] Infusion Lactated Ringer's 1,000 mls @ 30 mls/hr 02/20/25 13:40 02/20/25 16:40 Lr - Lactated Ringers Iv IV CONT Not Given .Q24H [facility] Cefazolin Sodium 2 gm/ Sodium 50 mls @ 100 mls/hr 02/20/25 22:00 02/21/25 05:37 Chloride IVPB 02/21/25 14:29 Infused Q8H [facility] Infusion Sodium Chloride 1,000 mls @ 125 mls/hr 02/20/25 16:24 02/21/25 02:19 Normal Saline Iv IV CONT Not Given .Q8H [facility] Ibuprofen 800 mg in 200 mls @ 400 mls/hr 02/20/25 16:24 Caldolor 800 Mg/200 Ml IVPB Q6H PRN Breakthrough Pain Rated 1-3 or NPO Lisinopril 40 mg 02/19/25 09:00 02/20/25 08:28 Lisinopril 20 Mg Tablet PO Not Given DAILY [facility] Montelukast Sodium 10 mg 02/19/25 09:00 02/20/25 08:28 Montelukast Sodium 10 Mg Tablet PO Not Given DAILY [facility] Naloxone HCl 0.1 mg 02/20/25 16:24 Naloxone Hcl 0.4 Mg/Ml Vial IV PUSH Q2M PRN Opiate Reversal Ondansetron HCl 4 mg 02/19/25 01:24 Ondansetron Inj 4 Mg/2 Ml Vial IV PUSH Q6H PRN Nausea And Vomiting Ondansetron HCl 4 mg 02/20/25 13:36 Ondansetron Inj 4 Mg/2 Ml Vial IV PUSH ONCE PRN Nausea Ondansetron HCl 4 mg 02/20/25 16:24 Ondansetron Inj 4 Mg/2 Ml Vial IV PUSH Q4H PRN Nausea And Vomiting Oxycodone/Acetaminophen 1 tablet 02/20/25 16:24 02/20/25 19:48 Oxycodone/Acetaminophen (*Crx) 5-325 Mg Tablet PO 1 tablet Q4H PRN Administration Pain Rated 4-6 Oxycodone/Acetaminophen 1 tab 02/20/25 16:24 Oxycodone/Acetaminophen (*Crx) 10-325 Mg Tablet PO Q6H PRN Pain Rated 7-10 Polyethylene Glycol 17 gm 02/21/25 09:00 Polyethylene Glycol 3350 17 Gm Powd.Pack PO QAM [facility] Rosuvastatin Calcium 20 mg 02/20/25 09:00 02/20/25 08:28 Rosuvastatin 20 Mg Tablet PO Not Given DAILY [facility] Senna/Docusate Sodium 2 tab 02/20/25 17:00 02/20/25 17:47 Senna/Docusate Sodium Tablet PO 2 tab BID [facility] Administration Tamsulosin HCl 0.4 mg 02/19/25 09:00 02/20/25 19:47 Tamsulosin Hcl 0.4 Mg Capsule PO 0.4 mg Q12HR [facility] Administration Tramadol HCl 50 mg 02/20/25 16:24 Tramadol Hcl (*Crx) 50 Mg Tablet PO Q4H PRN Pain Rated 1-3 Radiology Results: ITS Impressions Intraoperative X-Ray 02/20/25 15:20 IMPRESSION: 1. Near-anatomic alignment post open reduction internal fixation of an intertrochanteric fracture the proximal right femur. Labs Labs: Laboratory Results - last 24 hr 02/21/25 05:24 WBC 12.7 H RBC 4.23 L Hgb 12.6 L Hct 39.6 L MCV 93.6 MCH 29.8 MCHC 31.8 L RDW 12.8 Plt Count 143 L MPV 10.8 H Immature Gran % (Auto) 0.6 H Neut % (Auto) 88.2 H Lymph % (Auto) 3.7 L [place] % (Auto) 7.3 Eos % (Auto) 0.0 Baso % (Auto) 0.2 Lymph # (Auto) 0.47 L [place] # (Auto) 0.9 H Eos # (Auto) 0.0 Baso # (Auto) 0.0 Abs Immat Gran (auto) 0.07 H Absolute Neuts (auto) 11.2 H Absolute Nucleated RBC 0.000 Nucleated RBC % 0.0 Sodium 136 L Potassium 4.6 Chloride 100 Carbon Dioxide 30 Anion Gap 6 BUN 17 Creatinine 0.86 Estim Creat Clear Calc 89 Estimated GFR > 60 Glucose 127 H Calcium 8.8 Quality VTE Prophylaxis VTE prophylaxis: mechanical ordered
[2025-02-21] MEDS: FAMOTIDINE 20 MG TABLET PO (08:47)
[2025-02-21] MEDS: ROSUVASTATIN 20 MG TABLET PO (08:47)
[2025-02-21] MEDS: oxyCODONE/ACETAMINOPHEN (*CRX) 5-325 MG TABLET 1 TABLET PO (08:47)
[2025-02-21] MEDS: ASPIRIN 81 MG ENTERIC TABLET PO (08:47)
[2025-02-21] MEDS: SENNA/DOCUSATE SODIUM TABLET 2 TAB PO (08:47)
[2025-02-21] MEDS: ENOXAPARIN 40 MG/0.4 ML SYRINGE SUB-Q (08:47)
[2025-02-21] MEDS: MONTELUKAST SODIUM 10 MG TABLET PO (08:48)
[2025-02-21] MEDS: DOCUSATE SODIUM 100 MG CAPSULE PO (08:48)
[2025-02-21] MEDS: TAMSULOSIN HCL 0.4 MG CAPSULE PO (08:48)
[2025-02-21 10:09] VITALS: BP 120/79; PULSE 66; RESP 18; TEMP 37; O2SAT 97
--- NOTE | 2025-02-21 12:27 | P.DS_ITS ---
DS: Admitting Diagnosis Discharge Date 02/21/2025 Admitting Diagnosis Fall from a truck DS: Discharge Diagnosis Discharge Diagnosis (1) Closed intertrochanteric fracture of right femur: Qualifiers: Encounter type: initial encounter Fracture alignment: nondisplaced Qualified Code(s): S72.144A - Nondisplaced intertrochanteric fracture of right femur, initial encounter for closed fracture Code(s): S72.141A - Displaced intertrochanteric fracture of right femur, initial encounter for closed fracture Status: Acute DS: Summary Hospital Course Hospital Course: Patient presented tot he ER with right hip pain following fall from a truck. Evaluated in the ER with Hip XR showing intertrochanteric fracture of the right femur. Ortho was consulted and patient underwent ORIF. Underwent PT/OT eval and patient was recommended Home health for [facility] DIscharged on PRN pain control PRN oxycodone and Aspirin 81mg bid for DVT prophylaxis. F/u with PCP in 3-5 days F/u with ortho as instructed Time Spent with Patient Time attestation: Total time spent providing and/or coordinating discharge services: DS: Data Data Completed and Pending Labs on day of discharge: Labs from last 24 hours 02/21/25 05:24 WBC 12.7 H RBC 4.23 L Hgb 12.6 L Hct 39.6 L MCV 93.6 MCH 29.8 MCHC 31.8 L RDW 12.8 Plt Count 143 L MPV 10.8 H Immature Gran % (Auto) 0.6 H Neut % (Auto) 88.2 H Lymph % (Auto) 3.7 L [place] % (Auto) 7.3 Eos % (Auto) 0.0 Baso % (Auto) 0.2 Lymph # (Auto) 0.47 L [place] # (Auto) 0.9 H Eos # (Auto) 0.0 Baso # (Auto) 0.0 Abs Immat Gran (auto) 0.07 H Absolute Neuts (auto) 11.2 H Absolute Nucleated RBC 0.000 Nucleated RBC % 0.0 Sodium 136 L Potassium 4.6 Chloride 100 Carbon Dioxide 30 Anion Gap 6 BUN 17 Creatinine 0.86 Estim Creat Clear Calc 89 Estimated GFR > 60 Glucose 127 H Calcium 8.8 Discharge Plan Discharge Attending physician on discharge: Deacon Castro Consulting providers: Deacon Castro; Cameron Landeros Discharging Clinician: Deacon Castro Anticipated Discharge Date/Time: 02/21/25 12:25 Patient Disposition: Home with Home Health Service Activity: as tolerated Diet: as tolerated and heart healthy Discharge Instructions: Ortho instructions: DOS 02/20/25. ORIF right hip intertrochanteric fracture with dynamic hip screw * D/C home +/- Home health. * Follow up in office for staple removal on 03/07/25 @ 3:30. * Follow up in office at 6 weeks post op on 04/02/25 @ 8:15 arrive @ 8:00 for xrays. * Please call office for any questions. [facility]: [phone]. * Wound Care: Remove edson at 2 weeks post op. Daily dressing changes with gauze and tape until healed. * PT: Weight bearing as tolerated with a walker. * DVT prophylaxis: 81 mg baby aspirin b.i.d. for 14 days. Compression socks for 3 weeks. Short frequent walks. * Pain medication: Oxycodone Patient Instructions: Antibiotic Form Patient Language: Ivorian Stand Alone Forms: General Discharge Information Follow-up/Referrals: Haja Lynn MD [Primary Care Provider, Family Practice] Referral Note: F/u wtih PCP in 3-5 days Cameron Landeros MD [Physician, Orthopedics] Referral Note: F/u with Ortho as instructed Discharge Medications: New oxycodone-acetaminophen 5-325 mg tablet 1 - 2 tablet PO Q4-6H PRN (Reason: pain) 7 Days Qty: 30 0RF Rx Instructions: Surgery: 02/20/25 Use for post op severe breakthrough pain. aspirin 81 mg tablet,delayed release (DR/EC) 81 mg PO BID 14 Days Qty: 28 0RF Continued tamsulosin 0.4 mg capsule 0.8 mg PO DAILY Patient Comments: pt states he takes this bid rosuvastatin 20 mg tablet 20 mg PO DAILY Airsupra 90-80 mcg/actuation HFA aerosol inhaler 2 inh inhalation 6XD PRN (Reason: shortness of breath) Qty: 32.1 3RF lisinopril 40 mg tablet 40 mg PO DAILY Qty: 90 0RF amlodipine 5 mg tablet See Rx Instructions .ROUTE .COMPLEX Qty: 30 1RF Dose Instruction: TAKE 1 TABLET BY MOUTH DAILY Rx Instructions: TAKE 1 TABLET BY MOUTH DAILY montelukast 10 mg tablet See Rx Instructions .ROUTE .COMPLEX Qty: 90 0RF Dose Instruction: TAKE 1 TABLET BY MOUTH DAILY Rx Instructions: TAKE 1 TABLET BY MOUTH DAILY escitalopram oxalate [Lexapro] 10 mg tablet 10 mg PO DAILY Qty: 90 0RF Date of admission: 02/18/25 22:18 Primary Care Provider: Haja Lynn Admitting Provider: Dottie Juares Attending physician on admission: Dottie Juares Condition: Improved
== END 2025-02-21 13:35 | disposition home health service (06) | DRG 482 ==
LOC: ANHED 21:02 → ANH3MED 22:31
PROVIDERS: Orthopaedic Surgery; Physician Assistant Surgical; Admitting Provider Internal Medicine; Emergency Provider Emergency Medicine; PCP Family Medicine; Visit Provider Internal Medicine
PROC: 0QS634Z Reposition Right Upper Femur with Internal Fixation Device, Percutaneous Approach (ICD-10-PCS; CPT 27236; principal; 2025-02-20 15:00)
DX: S72.141A Displaced intertrochanteric fracture of right femur, initial encounter for closed fracture (principal); W17.89XA Other fall from one level to another, initial encounter; E78.2 Mixed hyperlipidemia; I10 Essential (primary) hypertension; J45.909 Unspecified asthma, uncomplicated; I35.0 Nonrheumatic aortic (valve) stenosis; E78.5 Hyperlipidemia, unspecified; F41.8 Other specified anxiety disorders; N40.1 Benign prostatic hyperplasia with lower urinary tract symptoms; R35.0 Frequency of micturition; M16.11 Unilateral primary osteoarthritis, right hip; Z85.828 Personal history of other malignant neoplasm of skin
CPT/HCPCS: 36415; 71045; 73502; 80048; 80053; 83735; 85025; 86850; 86900; 86901; 93005; 96374; 96375; 97110; 97161; 97166; 97535; 99199; 99285; J0690; A9270; C1713; J1100; J1171; J1650; J2003; J2250; J2270; J2405; J2704; J3010; J7120